=== PATIENT | female | born 1980 | race Caucasian/White ===

== ENCOUNTER → 2016-05-29 | Outpatient (CLI) | payer MEDICAID ==
[2016-05-29 10:19] LABS: HEMATOCRIT 43.1 % (36.0-47.0); HEMOGLOBIN 14.1 g/dL (12.0-15.5); HGB HCT DIFFERENCE -0.8; MEAN CORPUSCULAR HGB CONC 32.6 g/dL (32.0-36.0); MEAN CORPUSCULAR VOLUME 83 fl (80-97); RED BLOOD COUNT 5.22 10^6/uL (3.72-5.28); WHITE BLOOD COUNT 10.3 10^3/uL (4.0-10.5)
[2016-05-29 10:41] LABS: ALBUMIN 3.9 g/dL (3.5-5.0); BILIRUBIN,TOTAL 0.3 mg/dL (0.2-1.3); CHOLESTEROL 179.68 mg/dL (0-200)
== END ==
LOC: OD 08:53
PROVIDERS: ATTEND Psychiatry & Neurology Psychiatry
DX: F31.32 Bipolar disorder, current episode depressed, moderate (principal)
CPT/HCPCS: 36415; 80076; 82465; 83036; 83721; 84478; 85027

== ENCOUNTER 2016-06-16 05:10 | Day surgery (SDC) | payer MEDICAID ==
[2016-06-14 11:39] LABS: HEMATOCRIT 40.6 % (36.0-47.0); HEMOGLOBIN 13.2 g/dL (12.0-15.5); MEAN CORPUSCULAR HEMOGLOBIN 26.9 pg (27.0-33.4); MEAN CORPUSCULAR HGB CONC 32.4 g/dL (32.0-36.0); MEAN CORPUSCULAR VOLUME 83 fl (80-97); RED CELL DISTRIBUTION WIDTH 14.4 % (11.5-14.0); WHITE BLOOD COUNT 11.4 10^3/uL (4.0-10.5)
[2016-06-14 11:43] LABS: APPEARANCE,URINE SLIGHTLY-CLOUDY; BILIRUBIN,URINE NEGATIVE (NEGATIVE); GLUCOSE, URINE NEGATIVE (NEGATIVE); KETONES,URINE NEGATIVE (NEGATIVE); LEUKOCYTE ESTERASE,URINE TRACE (NEGATIVE); NITRITE,URINE NEGATIVE (NEGATIVE); PROTEIN,URINE 30 mg/dL (NEGATIVE); URINE SPECIFIC GRAVITY 1.029; UROBILINOGEN,URINE NEGATIVE mg/dL (<2.0)
[2016-06-14 12:05] LABS: ANION GAP 12 (5-19); BLOOD UREA NITROGEN 12 mg/dL (7-20); CALCIUM 9.4 mg/dL (8.4-10.2); CARBON DIOXIDE 24 mmol/L (22-30); CHLORIDE 107 mmol/L (98-107); CREATININE RESULT 0.74 mg/dL (0.52-1.25); GLUCOSE 93 mg/dL (75-110); POTASSIUM 3.8 mmol/L (3.6-5.0); SODIUM 142.8 mmol/L (137-145)
--- NOTE | 2016-06-14 13:41 | EKG REPORT ---
SEVERITY:- ABNORMAL ECG - SINUS RHYTHM NONSPECIFIC ST-T CHANGES- INFERIOR LEADS : Confirmed by: Tutu Grant MD 14-Jun-2016 13:41:24
[~2016-06-16 05:10] MED LIST: CEFAZOLIN 1 GM/D5W RTU 1 GM/50 ML RTUPB IV PRN; LIDOCAINE 0.5% INJ-PF (5 MG/ML) 50 ML SDV SUBCUT PRN; RINGERS SOLUTION,LACTATED 1,000 ML IV PRN
[2016-06-16] MEDS ORDERED: LIDOCAINE 1% INJ-PF (10 MG/ML) 30 ML SDV ONE (06:22)
[2016-06-16] MEDS ORDERED: FENTANYL CITRATE INJ/PF 100 MCG/2 ML AMPUL ONE (07:09)
[2016-06-16] MEDS ORDERED: MIDAZOLAM 2 MG/2 ML INJ ONE (07:09)
[2016-06-16] MEDS ORDERED: EPHEDRINE SULFATE INJ 50 MG/1 ML AMPULE ONE (07:10)
[2016-06-16] MEDS ORDERED: PROPOFOL INJ 200 MG/20 ML VIAL IV ONE (07:10)
[2016-06-16] MEDS ORDERED: MEPERIDINE HCL/PF INJ 25 MG/1 ML DISP.SYRIN IV PRN (07:56)
[2016-06-16] MEDS ORDERED: OXYCODONE-ACETAMINOPHEN 5-325 MG TABLET PO PRN ×3 (07:56→09:05)
[2016-06-16] MEDS ORDERED: MORPHINE SULFATE 10 MG/ML INJ IV PRN (07:56)
[2016-06-16] MEDS ORDERED: FENTANYL CITRATE INJ/PF 100 MCG/2 ML AMPUL IV PRN ×3 (07:56)
[2016-06-16] MEDS ORDERED: DIPHENHYDRAMINE HCL 50 MG/ML VIAL IV PRN (07:56)
[2016-06-16] MEDS ORDERED: PROMETHAZINE HCL INJ 25 MG/1 ML VIAL IV PRN ×2 (07:56)
[2016-06-16] MEDS: FENTANYL CITRATE INJ/PF 100 MCG/2 ML AMPUL ONE ×2 (08:35→08:40)
[2016-06-16] MEDS ORDERED: KETOROLAC TROMETHAMINE INJ/PF 30 MG/1 ML SDV ONE (08:44)
--- NOTE | 2016-06-16 08:53 | OPERATIVE REPORT E ---
Operative Report NAME: JANETH JOHNSON : 1980 AGE: 35Y DATE OF SURGERY: 06/16/2016 ROOM: PREOPERATIVE DIAGNOSES: 1. Anovulatory bleeding. 2. Menorrhagia. 3. Obesity. POSTOPERATIVE DIAGNOSES: 1. Anovulatory bleeding. 2. Menorrhagia. 3. Obesity. PROCEDURES: 1. Hysteroscopy. 2. Curettage. 3. Mirena IUD placement. SURGEON: GWENDOLYN RUIZ M.D. COMPLICATIONS: None. ANESTHESIA: General endotracheal. FINDINGS: That of a difficult to locate cervix. Uterus was incompletely evaluated due to limitations of equipment. IUD placed in situ. Uterus sounded to approximately 7 cm. INDICATIONS FOR PROCEDURE: The patient had abnormal uterine bleeding, failed outpatient localization of her cervix, and elected to proceed to an IUD placement and curettage for further assessment. The usual risks of bleeding, infection, anesthesia, damage to organs and tissues were discussed and the patient understood. DESCRIPTION OF PROCEDURE: The patient was taken to the operating room and placed in the lithotomy position and adequate anesthesia ascertained, prepped and draped for a hysteroscopy, curettage, IUD placement. Uneventful anesthesia induction was performed after surgical timeout performed, EUA performed, and antibiotics were given. Cervix was localized with a quadrant speculum, *------* vaginal length, and tenaculum was placed on the anterior lip of the cervix. The cervix was dilated uneventfully to admit an operative hysteroscope and limitations of the scope included adequate visualization of the uterine cavity. Uterine measurements were taken. The IUD was inserted, string was cut long, and bleeding was nil at the completion of procedure. Curettage followed the dilation productive of a small amount of tissue. At the completion of procedure, all sponge and needle counts were correct. The patient was taken to the recovery room in stable condition. DICTATING PHYSICIAN: GWENDOLYN RUIZ M.D. [id number] PHY#: [id number] ID: [id number] JOB#: [id number] ACCT: [id number] cc:GWENDOLYN RUIZ M.D. >
[2016-06-16] MEDS ORDERED: IBUPROFEN 800 MG TABLET PO PRN (09:04)
[2016-06-16] MEDS ORDERED: ONDANSETRON HCL INJ/PF 4 MG/2 ML SDV ONE (09:13)
[2016-06-16] MEDS ORDERED: DEXAMETHASONE SOD PHOSPHATE INJ 4 MG/1 ML VIAL ONE (09:13)
[2016-06-16] MEDS ORDERED: NEOSTIGMINE METHYLSULFATE 10 MG/10 ML VIAL ONE (09:13)
[2016-06-16] MEDS ORDERED: LIDOCAINE 2% INJ-PF (20 MG/ML) 10 ML AMPUL ONE (09:13)
[2016-06-16] MEDS ORDERED: ROCURONIUM BROMIDE INJ 50 MG/5 ML VIAL IV ONE (09:13)
[2016-06-16] MEDS ORDERED: GLYCOPYRROLATE INJ 0.4 MG/2 ML VIAL ONE (09:13)
[2016-06-16] MEDS ORDERED: SUCCINYLCHOLINE CHLORIDE INJ 200 MG/10 ML VIAL ONE (09:13)
[2016-06-16 11:18] VITALS: BP 122/77
== END 2016-06-16 10:20 | disposition home or self-care (01) ==
LOC: OROUT 05:10
PROVIDERS: ATTEND Specialist
PROC: 0UDB8ZX Extraction of Endometrium, Via Natural or Artificial Opening Endoscopic, Diagnostic (ICD-10-PCS; 2016-06-16)
PROC: 0UH Female Reproductive System, Insertion (ICD-10-PCS; principal; 2016-06-16 07:15)
DX: N94.4 Primary dysmenorrhea (principal); N92.0 Excessive and frequent menstruation with regular cycle; E66.9 Obesity, unspecified; K21.9 Gastro-esophageal reflux disease without esophagitis; Z68.45 Body mass index [BMI] 70 or greater, adult; Z88.2 Allergy status to sulfonamides; Z79.899 Other long term (current) drug therapy; Z88.8 Allergy status to other drugs, medicaments and biological substances
CPT/HCPCS: 93005; 86900; 86901; 36415; 86850; 85027; 81025; 80048; 81001; 88305 ×2; 71020; 93010; 58300; 58558; J2250; J0690; J3490 ×4; J1100; J3010; J1885; J0330; J2405; J2704; 952

== ENCOUNTER 2016-08-25 03:20 | Emergency (ER) | payer MEDICAID ==
[2016-08-25] MEDS ORDERED: ASPIRIN 81 MG TABLET, CHEWABLE PO ONE (04:33)
[2016-08-25 04:42] LABS: ABSOLUTE EOSINOPHILS # (AUTO) 0.7 10^3/uL (0.0-0.6); ABSOLUTE LYMPHOCYTES (AUTO) 3.1 10^3/uL (0.5-4.7); ABSOLUTE MONOCYTES (AUTO) 0.8 10^3/uL (0.1-1.4); ABSOLUTE NEUT (AUTO) 7.8 10^3/uL (1.7-8.2); BASOPHILS % (AUTO) 0.3 % (0-2); EOSINOPHILS % (AUTO) 5.5 % (0-6); HEMATOCRIT 40.2 % (36.0-47.0); HEMOGLOBIN 13.1 g/dL (12.0-15.5); HGB HCT DIFFERENCE -0.9; MEAN CORPUSCULAR HEMOGLOBIN 27.1 pg (27.0-33.4); MEAN CORPUSCULAR HGB CONC 32.6 g/dL (32.0-36.0); MEAN CORPUSCULAR VOLUME 83 fl (80-97); MONOCYTES % (AUTO) 6.3 % (3-13); RED BLOOD COUNT 4.83 10^6/uL (3.72-5.28); RED CELL DISTRIBUTION WIDTH 13.7 % (11.5-14.0); SEGMENTED NEUTROPHILS % (AUTO) 62.9 % (42-78); WHITE BLOOD COUNT 12.5 10^3/uL (4.0-10.5)
[2016-08-25 04:52] LABS: ALANINE AMINOTRANSFERASE 35 U/L (9-52); ALBUMIN 3.3 g/dL (3.5-5.0); ALKALINE PHOSPHATASE 61 U/L (38-126); ANION GAP 11 (5-19); ASPARTATE AMINO TRANSFERASE 26 U/L (14-36); BILIRUBIN,DIRECT 0.3 mg/dL (0.0-0.4); BILIRUBIN,TOTAL 0.4 mg/dL (0.2-1.3); BLOOD UREA NITROGEN 9 mg/dL (7-20); CALCIUM 9.2 mg/dL (8.4-10.2); CARBON DIOXIDE 20 mmol/L (22-30); CHLORIDE 110 mmol/L (98-107); CREATINE KINASE 60 U/L (30-135); CREATININE RESULT 0.75 mg/dL (0.52-1.25); GLUCOSE 144 mg/dL (75-110); POTASSIUM 3.8 mmol/L (3.6-5.0); SODIUM 141.3 mmol/L (137-145); TOTAL PROTEIN 6.1 g/dL (6.3-8.2)
[2016-08-25] MEDS ORDERED: LORAZEPAM INJ 2 MG/1 ML VIAL IV ONE (05:03)
[2016-08-25] MEDS ORDERED: MORPHINE SULFATE 10 MG/ML INJ IV ONE (05:03)
[2016-08-25 05:04] LABS: CREATINE KINASE MB 0.39 ng/mL (<4.55)
[2016-08-25 05:05] LABS: TROPONIN I < 0.012 ng/mL
--- NOTE | 2016-08-25 05:06 | RADIOLOGY REPORT (SQ) ---
EXAM DESCRIPTION: CHEST SINGLE VIEW COMPLETED DATE/TIME: 08/25/2016 4:54 am REASON FOR STUDY: chest pain COMPARISON: Chest x-ray 06/14/2016 EXAM PARAMETERS: NUMBER OF VIEWS: One view. TECHNIQUE: Single frontal radiographic view of the chest acquired. RADIATION DOSE: NA LIMITATIONS: None. FINDINGS: LUNGS AND PLEURA: No consolidation, pleural effusion or pneumothorax. MEDIASTINUM AND HILAR STRUCTURES: No masses. Contour normal. HEART AND VASCULAR STRUCTURES: Heart is upper normal limit in size. No overt vascular congestion. BONES: No acute findings. HARDWARE: None in the chest. IMPRESSION: NO ACUTE RADIOGRAPHIC FINDING IN THE CHEST. TECHNICAL DOCUMENTATION: JOB ID: [id number]
[2016-08-25 06:07] VITALS: BP 113/79
--- NOTE | 2016-08-25 06:07 | ER Document Report ---
ED General - General Chief Complaint: Chest Pain Stated Complaint: CHEST PAIN Time Seen by Provider: 08/25/16 04:33 Notes: Patient is a 35-year-old female presents emergency department complaining of chest pain with sudden onset about 230 this morning. Patient states it is a sharp stabbing pain with pressure in the left part of her chest that did not relieve with nitroglycerin or aspirin. She admits to associated nausea and vomiting which she states is common anytime she has any severe pain. Denies that it is worse with movement. At its worst when palpated. Patient states she does have a history of chest pain but nothing severe or lasting this long. She does have a history of bipolar, anxiety and has been having a lot more stress at home with 2 special needs children. TRAVEL OUTSIDE OF THE [place] IN LAST 30 DAYS: No - Related Data Allergies/Adverse Reactions: Sulfa (Sulfonamide Antibiotics) Allergy (Severe, Verified 06/15/16 10:30) ? sumatriptan [From Imitrex] Allergy (Intermediate, Verified 06/14/16 11:37) Hives citalopram hydrobromide [From Celexa] Allergy (Unknown, Verified 06/14/16 11:37) Hives pseudoephedrine HCl [From Sudafed] Allergy (Unknown, Verified 06/14/16 11:37) Hives adhesive tape Adverse Reaction (Unknown, Verified 06/14/16 11:37) Pruritis Past Medical History - Social History Smoking Status: Never Smoker Family History: Arthritis, DM, Hypertension, Malignancy, Other - asthma Patient has suicidal ideation: No - Past Medical History Cardiac Medical History: Denies: Hx Coronary Artery Disease, Hx Heart Attack, Hx Hypertension Pulmonary Medical History: Reports: Hx Bronchitis - A CHILD, Hx Pneumonia - FEB 2016 Denies: Hx Asthma, Hx COPD Neurological Medical History: Reports: Hx Migraine. Denies: Hx Cerebrovascular Accident, Hx Seizures Endocrine Medical History: Denies: Hx Diabetes Mellitus Type 2 Renal/ Medical History: Reports: Hx Kidney Stones, Hx Ovarian Cysts - pcos. Denies: Hx Peritoneal Dialysis GI Medical History: Reports: Hx Gastroesophageal Reflux Disease Musculoskeltal Medical History: Denies Hx Arthritis Skin Medical History: Reports Hx Eczema Psychiatric Medical History: Reports: Hx Anxiety, Hx Bipolar Disorder, Hx Depression Traumatic Medical History: Reports: Hx Fractures - hand Past Surgical History: Reports: Hx Adenoidectomy, Hx Section, Hx Cholecystectomy, Hx Kidney (Renal Surgery), Hx Tonsillectomy. Denies: Hx Hysterectomy, Hx Pacemaker - Immunizations Immunizations up to date: Yes Hx Diphtheria, Pertussis, Tetanus Vaccination: Yes Hx Pneumococcal Vaccination: 03/26/00 Review of Systems - Review of Systems Constitutional: No symptoms reported Cardiovascular: See HPI Respiratory: No symptoms reported Gastrointestinal: No symptoms reported -: Yes All other systems reviewed and negative Physical Exam - Vital signs Vitals: Temp Resp BP Pulse Ox 98.9 F 30 H 137/86 H 94 08/25/16 03:43 08/25/16 03:43 08/25/16 03:43 08/25/16 03:43 - Notes Notes: PHYSICAL EXAM GENERAL: Alert, interacts well. NECK: Full range of motion. Supple. Trachea midline. LUNGS: Clear to auscultation bilaterally, no wheezes, rales, or rhonchi. No respiratory distress. HEART: Regular rate and rhythm. No murmurs, gallops, or rubs. Tender over the pectoralis major distribution on the left part of the chest. ABDOMEN: Soft, nondistended, nontender. No guarding, rebound, or rigidity.. Bowel sounds present in all 4 quadrants. EXTREMITIES: Moves all 4 extremities spontaneously. No edema, radial and dorsalis pedis pulses 2/4 bilaterally. No cyanosis. NEUROLOGICAL: Alert and oriented x4. Normal speech. PSYCH: Normal affect, normal mood. SKIN: Warm, dry, normal turgor. No rashes or lesions noted. Course - Re-evaluation Re-evalutation: 08/25/16 06:03 Patient is very well in appearance, vitals within normal limits. Low clinical suspicion for ACS given clinical history, exam, EKG without ST elevations or depressions, and negative initial troponin. Patient declined repeat troponin. HEART score less than or equal to 3. PE also seems unlikely given clinical history, absence of tachycardia or dyspnea. Well's score of 0. CXR without evidence of pneumothorax or pneumonia. No widened mediastinum. Aortic dissection also seems unlikely given history, symmetric pulses, CXR, and vitals. At this time will discharge with return precautions and follow-up recommendations. Verbal discharge instructions given a the bedside and opportunity for questions given. Medication warnings reviewed. Patient is in agreement with this plan and has verbalized understanding of return precautions and the need for primary care follow-up in the next 24-72 hours. Per [facility] protocol and guidelines, this case was discussed with supervising physician Dr. Sarah Boyce prior to discharge - Vital Signs Vital signs: Temp Pulse Resp BP Pulse Ox 98.9 F 25 H 113/79 93 08/25/16 03:43 08/25/16 05:31 08/25/16 05:31 08/25/16 05:31 - Laboratory Result Diagrams: 08/25/16 03:50 08/25/16 03:50 Laboratory results interpreted by me: 08/25/16 08/25/16 03:50 03:50 WBC 12.5 H Absolute Eosinophils 0.7 H Chloride 110 H Carbon Dioxide 20 L Glucose 144 H Total Protein 6.1 L Albumin 3.3 L - Diagnostic Test Radiology reviewed: Image reviewed, Reports reviewed - EKG Interpretation by Me EKG shows normal: Sinus rhythm Rate: Normal Rhythm: NSR Discharge - Discharge Clinical Impression: Chest pain, unspecified, Anxiety Condition: Good Disposition: HOME, SELF-CARE Instructions: Chest Pain of Unclear Cause ([facility]), Anxiety ([facility]) Referrals: JUAN FRANCISCO WHITEHEAD MD [NO LOCAL MD] - 08/25/16
--- NOTE | 2016-08-25 08:51 | EKG REPORT ---
SEVERITY:- BORDERLINE ECG - SINUS RHYTHM BORDERLINE T ABNORMALITIES, INFERIOR LEADS : Confirmed by: Katy Jim 25-Aug-2016 08:50:16
== END 2016-08-25 06:12 | disposition home or self-care (01) ==
LOC: ER 03:20
DX: R07.9 Chest pain, unspecified (principal); F41.9 Anxiety disorder, unspecified; R11.2 Nausea with vomiting, unspecified; F31.9 Bipolar disorder, unspecified
CPT/HCPCS: 36415; 71010; 80053; 82550; 82553; 84484; 85025; 85379; 93005; 93010; 99285

== ENCOUNTER 2016-09-22 22:08 | Emergency (ER) | payer SELFPAY ==
[2016-09-22 22:47] VITALS: BP 142/102
--- NOTE | 2016-09-23 01:41 | ER Document Report ---
ED General - General Chief Complaint: Ear Pain Stated Complaint: EAR PAIN Time Seen by Provider: 09/23/16 00:51 Notes: Patient is a 35-year-old female who presents with 3 days of right ear pain. Does describe as a severe, constant, throbbing pain. She has tried ibuprofen without improvement of the pain. Nothing worsens the pain. States this feels similar to when she has had otitis media in the past. She has not seen a primary care doctor regarding today's concerns. She denies any loss of hearing. She has not had a fever or constitutional symptoms. TRAVEL OUTSIDE OF THE [place] IN LAST 30 DAYS: No - Related Data Allergies/Adverse Reactions: Sulfa (Sulfonamide Antibiotics) Allergy (Severe, Verified 06/15/16 10:30) ? sumatriptan [From Imitrex] Allergy (Intermediate, Verified 06/14/16 11:37) Hives citalopram hydrobromide [From Celexa] Allergy (Unknown, Verified 06/14/16 11:37) Hives pseudoephedrine HCl [From Sudafed] Allergy (Unknown, Verified 06/14/16 11:37) Hives adhesive tape Adverse Reaction (Unknown, Verified 06/14/16 11:37) Pruritis Past Medical History - General Information source: Patient - Social History Smoking Status: Never Smoker Frequency of alcohol use: None Drug Abuse: None Lives with: Family Family History: Arthritis, DM, Hypertension, Malignancy, Other - asthma Patient has suicidal ideation: No Patient has homicidal ideation: No - Past Medical History Cardiac Medical History: Denies: Hx Coronary Artery Disease, Hx Heart Attack, Hx Hypertension Pulmonary Medical History: Reports: Hx Bronchitis - A CHILD, Hx Pneumonia - FEB 2016 Denies: Hx Asthma, Hx COPD Neurological Medical History: Reports: Hx Migraine. Denies: Hx Cerebrovascular Accident, Hx Seizures Endocrine Medical History: Denies: Hx Diabetes Mellitus Type 2 Renal/ Medical History: Reports: Hx Kidney Stones, Hx Ovarian Cysts - pcos. Denies: Hx Peritoneal Dialysis GI Medical History: Reports: Hx Gastroesophageal Reflux Disease Musculoskeltal Medical History: Denies Hx Arthritis Skin Medical History: Reports Hx Eczema Psychiatric Medical History: Reports: Hx Anxiety, Hx Bipolar Disorder, Hx Depression Traumatic Medical History: Reports: Hx Fractures - hand Past Surgical History: Reports: Hx Adenoidectomy, Hx Section, Hx Cholecystectomy, Hx Kidney (Renal Surgery), Hx Tonsillectomy. Denies: Hx Hysterectomy, Hx Pacemaker - Immunizations Immunizations up to date: Yes Hx Diphtheria, Pertussis, Tetanus Vaccination: Yes Hx Pneumococcal Vaccination: 03/26/00 Review of Systems - Review of Systems Notes: Constitutional: Negative for fever. HENT: Positive for right ear pain Eyes: Negative for visual changes. Cardiovascular: Negative for chest pain. Respiratory: Negative for shortness of breath. Gastrointestinal: Negative for abdominal pain, vomiting or diarrhea. Genitourinary: Negative for dysuria. Musculoskeletal: Negative for back pain. Skin: Negative for rash. Neurological: Negative for headaches, weakness or numbness. 10 point ROS negative except as marked above and in HPI. Physical Exam - Vital signs Vitals: Temp Pulse Resp BP Pulse Ox 98.3 F 97 22 H 142/102 H 95 09/22/16 22:46 09/22/16 22:46 09/22/16 22:46 09/22/16 22:46 09/22/16 22:46 Interpretation: Hypertensive Notes: PHYSICAL EXAMINATION: GENERAL: Well-appearing, well-nourished and in no acute distress. HEAD: Atraumatic, normocephalic. EYES: sclera anicteric, conjunctiva are normal. ENT: There is bulging of the right tympanic membrane with associated erythema without a purulent effusion. Left TM is clear. NECK: Normal range of motion LUNGS: Normal work of breathing HEART: 2+ radial pulses bilaterally EXTREMITIES: no pitting or edema. No cyanosis. NEUROLOGICAL: No focal neurological deficits. Moves all extremities spontaneously and on command. PSYCH: Normal mood, normal affect. SKIN: Warm, Dry, normal turgor, no rashes or lesions noted. Course - Re-evaluation Re-evalutation: 09/23/16 01:38 Patient presents with right ear pain and has findings on exam of a bulging right tympanic membrane with mild erythema without purulent expression. Suspect likely viral versus allergic etiology. I have encouraged the patient begin cetirizine 10 mg daily. I have also prescribed a [id number] prescription of amoxicillin should her symptoms not resolve within the next several days using conservative management as there are not specific findings for an otitis media that is bacterial in origin at this time. At this time will discharge with return precautions and follow-up recommendations. Verbal discharge instructions given a the bedside and opportunity for questions given. Medication warnings reviewed. Patient is in agreement with this plan and has verbalized understanding of return precautions and the need for primary care follow-up in the next 24-72 hours. - Vital Signs Vital signs: Temp Pulse Resp BP Pulse Ox 98.3 F 97 22 H 142/102 H 95 09/22/16 22:46 09/22/16 22:46 09/22/16 22:46 09/22/16 22:46 09/22/16 22:46 Discharge - Discharge Clinical Impression: Right otitis media Qualifiers: Otitis media type: serous Chronicity: acute Recurrence: not specified as recurrent Qualified Code(s): H65.01 - Acute serous otitis media, right ear Condition: Good Disposition: HOME, SELF-CARE Additional Instructions: Take cetirizine 10 mg daily for the next several days and see if this resolves your ear ache. You can also take ibuprofen 600 mg every 6 hours. If within the next 48-72 hours you do not have resolution of your pain begin taking the amoxicillin that was prescribed. Return if you develop fever greater than 100.4 F, have persistent vomiting, pass out, or have any other symptoms that are worrisome to you. Prescriptions: Amoxicillin 1 tab PO TID #30 tab
== END 2016-09-23 01:50 | disposition home or self-care (01) ==
LOC: ER 22:08
DX: H65.01 Acute serous otitis media, right ear (principal); H92.01 Otalgia, right ear; Z88.2 Allergy status to sulfonamides; Z88.8 Allergy status to other drugs, medicaments and biological substances; Z88.6 Allergy status to analgesic agent
CPT/HCPCS: 99282

== ENCOUNTER 2016-10-15 22:37 | Emergency (ER) | payer SELFPAY ==
[2016-10-15] MEDS ORDERED: NORMAL SALINE 1000 ML 1,000 ML IV ONE (23:36)
[2016-10-15] MEDS ORDERED: DIAZEPAM INJ 10 MG/2 ML DISP.SYRIN IV ONE (23:36)
[2016-10-16 00:37] LABS: ABSOLUTE BASOPHILS # (AUTO) 0.1 10^3/uL (0.0-0.2); ABSOLUTE EOSINOPHILS # (AUTO) 0.5 10^3/uL (0.0-0.6); ABSOLUTE LYMPHOCYTES (AUTO) 3.1 10^3/uL (0.5-4.7); ABSOLUTE MONOCYTES (AUTO) 0.9 10^3/uL (0.1-1.4); ABSOLUTE NEUT (AUTO) 7.6 10^3/uL (1.7-8.2); EOSINOPHILS % (AUTO) 4.5 % (0-6); HEMATOCRIT 42.2 % (36.0-47.0); HEMOGLOBIN 14.2 g/dL (12.0-15.5); HGB HCT DIFFERENCE 0.4; LYMPHOCYTES % (AUTO) 25.3 % (13-45); MEAN CORPUSCULAR HEMOGLOBIN 27.2 pg (27.0-33.4); MEAN CORPUSCULAR HGB CONC 33.6 g/dL (32.0-36.0); MEAN CORPUSCULAR VOLUME 81 fl (80-97); MONOCYTES % (AUTO) 7.3 % (3-13); RED BLOOD COUNT 5.21 10^6/uL (3.72-5.28); RED CELL DISTRIBUTION WIDTH 14.3 % (11.5-14.0); SEGMENTED NEUTROPHILS % (AUTO) 61.9 % (42-78); WHITE BLOOD COUNT 12.2 10^3/uL (4.0-10.5)
[2016-10-16 00:47] LABS: ANION GAP 7 (5-19); BLOOD UREA NITROGEN 9 mg/dL (7-20); CALCIUM 9.1 mg/dL (8.4-10.2); CARBON DIOXIDE 29 mmol/L (22-30); CHLORIDE 104 mmol/L (98-107); CREATININE RESULT 0.76 mg/dL (0.52-1.25); GLUCOSE 92 mg/dL (75-110); POTASSIUM 4.5 mmol/L (3.6-5.0); SODIUM 140.4 mmol/L (137-145)
[2016-10-16] MEDS ORDERED: PROCHLORPERAZINE EDISYLATE INJ 10 MG/2 ML VIAL IV ONE (00:59)
[2016-10-16] MEDS ORDERED: KETOROLAC TROMETHAMINE INJ/PF 30 MG/1 ML SDV IV ONE (00:59)
[2016-10-16] MEDS ORDERED: DIPHENHYDRAMINE HCL 50 MG/ML VIAL IV ONE (00:59)
--- NOTE | 2016-10-16 01:00 | ER Document Report ---
ED General - General Chief Complaint: Dizziness Stated Complaint: DIZZY AND VOMITING Time Seen by Provider: 10/15/16 23:35 Notes: Patient is a 35-year-old female with past medical history of morbid obesity, history of idiopathic intracranial hypertension, who presents with 3 days of vertigo. Describes it as a sensation of room spinning. Nothing improves or worsens her symptoms. She has tried meclizine without improvement which she states does normally improve her vertigo. Also notes a dull, constant, throbbing headache in the bitemporal region that was gradual in onset and has been unchanged over the past 3-4 hours. Does admit that she is no longer taking her Diamox for her idiopathic intracranial hypertension due to side effects and thinks that this may be a cause of her episode today. She has not seen a primary care doctor regarding today's concerns. She denies any focal weakness, numbness, or altered mental status. Denies any difficulty with ambulation. TRAVEL OUTSIDE OF THE [place] IN LAST 30 DAYS: No - Related Data Allergies/Adverse Reactions: Sulfa (Sulfonamide Antibiotics) Allergy (Severe, Verified 10/15/16 22:44) ? sumatriptan [From Imitrex] Allergy (Intermediate, Verified 10/15/16 22:44) Hives citalopram hydrobromide [From Celexa] Allergy (Unknown, Verified 10/15/16 22:44) Hives pseudoephedrine HCl [From Sudafed] Allergy (Unknown, Verified 10/15/16 22:44) Hives adhesive tape Adverse Reaction (Unknown, Verified 10/15/16 22:44) Pruritis Past Medical History - General Information source: Patient - Social History Smoking Status: Never Smoker Frequency of alcohol use: None Drug Abuse: None Lives with: Family Family History: Arthritis, DM, Hypertension, Malignancy, Other - asthma - Past Medical History Cardiac Medical History: Denies: Hx Coronary Artery Disease, Hx Heart Attack, Hx Hypertension Pulmonary Medical History: Reports: Hx Bronchitis - A CHILD, Hx Pneumonia - FEB 2016 Denies: Hx Asthma, Hx COPD Neurological Medical History: Reports: Hx Migraine. Denies: Hx Cerebrovascular Accident, Hx Seizures Endocrine Medical History: Denies: Hx Diabetes Mellitus Type 2 Renal/ Medical History: Reports: Hx Kidney Stones, Hx Ovarian Cysts - pcos. Denies: Hx Peritoneal Dialysis GI Medical History: Reports: Hx Gastroesophageal Reflux Disease Musculoskeltal Medical History: Denies Hx Arthritis Skin Medical History: Reports Hx Eczema Psychiatric Medical History: Reports: Hx Anxiety, Hx Bipolar Disorder, Hx Depression Traumatic Medical History: Reports: Hx Fractures - hand Past Surgical History: Reports: Hx Adenoidectomy, Hx Section, Hx Cholecystectomy, Hx Kidney (Renal Surgery), Hx Tonsillectomy. Denies: Hx Hysterectomy, Hx Pacemaker - Immunizations Immunizations up to date: Yes Hx Diphtheria, Pertussis, Tetanus Vaccination: Yes Hx Pneumococcal Vaccination: 03/26/00 Review of Systems - Review of Systems Notes: Constitutional: Negative for fever. HENT: Negative for sore throat. Eyes: Negative for visual changes. Cardiovascular: Negative for chest pain. Respiratory: Negative for shortness of breath. Gastrointestinal: Negative for abdominal pain, vomiting or diarrhea. Genitourinary: Negative for dysuria. Musculoskeletal: Negative for back pain. Skin: Negative for rash. Neurological: Positive for headaches, negative for weakness or numbness. Positive for vertigo 10 point ROS negative except as marked above and in HPI. Physical Exam - Vital signs Vitals: Temp Pulse Resp BP Pulse Ox 98.1 F 112 H 22 H 129/108 H 94 10/15/16 22:44 10/15/16 22:44 10/15/16 22:44 10/15/16 22:44 10/15/16 22:44 Interpretation: Tachycardic, Tachypneic Notes: PHYSICAL EXAMINATION: GENERAL: Well-appearing, well-nourished and in no acute distress. HEAD: Atraumatic, normocephalic. EYES: Pupils equal round and reactive to light, extraocular movements intact, sclera anicteric, conjunctiva are normal. ENT: nares patent, oropharynx clear without exudates. Moist mucous membranes. NECK: Normal range of motion, supple without lymphadenopathy LUNGS: Breath sounds clear to auscultation bilaterally and equal. No wheezes rales or rhonchi. HEART: Regular rate and rhythm without murmurs ABDOMEN: Soft, nontender, normoactive bowel sounds. No guarding, no rebound. No masses appreciated. EXTREMITIES: Normal range of motion, no pitting or edema. No cyanosis. NEUROLOGICAL: Face symmetric. Tongue protrudes midline. Extraocular motions intact. Pupils are 2 mm and equally reactive. Normal speech, normal gait. 5 out of 5 strength in both the distal and proximal upper and lower extremities bilaterally. Sensation is grossly intact throughout. Finger to nose testing normal. Pronator drift normal. PSYCH: Normal mood, normal affect. SKIN: Warm, Dry, normal turgor, no rashes or lesions noted. Course - Re-evaluation Re-evalutation: 10/16/16 01:00 Presentation of vertigo that appears most consistent with a benign peripheral vertigo. Patient has no abnormal findings on exam. Normal cerebellar testing, steady even gait. Able to walk on heels and toes. Normal proprioception. Patient is not an elevated risk for a cerebellar infarction given age, absence of significant risk factors. Patient did have improvement of symptoms here in the emergency department with valium and a migraine cocktail. Suspect likely acute vestibular neuritis vs migraine headache with associated vertigo. I do not believe neurologic imaging is indicated at this time based on physical examination and clinical history. At this time will discharge with return precautions and follow-up recommendations. Verbal discharge instructions given a the bedside and opportunity for questions given. Medication warnings reviewed. Patient is in agreement with this plan and has verbalized understanding of return precautions and the need for primary care follow-up in the next 24-72 hours. - Vital Signs Vital signs: Temp Pulse Resp BP Pulse Ox 98.1 F 112 H 17 108/94 H 98 10/15/16 22:44 10/15/16 22:44 10/16/16 01:01 10/16/16 01:01 10/16/16 01:01 - Laboratory Result Diagrams: 10/16/16 00:28 10/16/16 00:28 Laboratory results interpreted by me: 10/16/16 00:28 WBC 12.2 H RDW 14.3 H Discharge - Discharge Clinical Impression: Vertigo Condition: Good Disposition: HOME, SELF-CARE Additional Instructions: You were seen today for lightheadedness/dizziness. The exact cause of your symptoms is unclear but your workup here is reassuring without any concerning findings. Please follow closely with your primary care physician in the next 1- 3 days. Return if you pass out, have additional episodes of lightheadedness, develop weakness/numbness, have persistent vomiting, chest pain, shortness of breath or any other symptoms that are concerning to you
[2016-10-16 01:08] VITALS: BP 108/94
== END 2016-10-16 02:22 | disposition home or self-care (01) ==
LOC: ER 22:37
DX: R42 Dizziness and giddiness (principal); R51 Headache; I10 Essential (primary) hypertension; R11.10 Vomiting, unspecified
CPT/HCPCS: 99284; 96361; 96374; 96375; 36415; 84703; 85025; 80048; J3360; J1200; J1885; J0780; J7030

== ENCOUNTER 2016-11-07 16:30 | Emergency (ER) | payer SELFPAY ==
[2016-11-07] MEDS ORDERED: HYDROCODONE/ACETAMINOPHEN 5-325 MG TABLET PO ONE (17:17)
[2016-11-07] MEDS ORDERED: ONDANSETRON 4 MG TAB.RAPDIS PO ONE (17:17)
--- NOTE | 2016-11-07 17:20 | ER Document Report ---
ED General - General Chief Complaint: Flank Pain Stated Complaint: LOW BACK PAIN, NAUSEA Time Seen by Provider: 11/07/16 17:11 Mode of Arrival: Ambulatory Information source: Patient Notes: 35-year-old female presents with complaints of right flank pain. Patient notes this feels similar to previous kidney infections. Denies any fevers chills, admits to nausea vomiting TRAVEL OUTSIDE OF THE [place] IN LAST 30 DAYS: No - HPI Onset: Other - 2 days Onset/Duration: Sudden, Persistent Quality of pain: Achy Severity: Mild Pain Level: 1 Associated symptoms: Nausea, Vomiting Exacerbated by: Denies Relieved by: Denies Similar symptoms previously: Yes Recently seen / treated by doctor: Yes - Related Data Allergies/Adverse Reactions: Sulfa (Sulfonamide Antibiotics) Allergy (Severe, Verified 11/07/16 16:45) ? sumatriptan [From Imitrex] Allergy (Intermediate, Verified 11/07/16 16:45) Hives citalopram hydrobromide [From Celexa] Allergy (Unknown, Verified 11/07/16 16:45) Hives pseudoephedrine HCl [From Sudafed] Allergy (Unknown, Verified 11/07/16 16:45) Hives adhesive tape Adverse Reaction (Unknown, Verified 11/07/16 16:45) Pruritis Past Medical History - Social History Smoking Status: Never Smoker Cigarette use (# per day): No Chew tobacco use (# tins/day): No Smoking Education Provided: No Frequency of alcohol use: None Drug Abuse: None Family History: Arthritis, DM, Hypertension, Malignancy, Other - asthma Patient has suicidal ideation: No Patient has homicidal ideation: No - Past Medical History Cardiac Medical History: Denies: Hx Coronary Artery Disease, Hx Heart Attack, Hx Hypertension Pulmonary Medical History: Reports: Hx Bronchitis - A CHILD, Hx Pneumonia - FEB 2016 Denies: Hx Asthma, Hx COPD Neurological Medical History: Reports: Hx Migraine. Denies: Hx Cerebrovascular Accident, Hx Seizures Endocrine Medical History: Denies: Hx Diabetes Mellitus Type 2 Renal/ Medical History: Reports: Hx Kidney Stones, Hx Ovarian Cysts - pcos. Denies: Hx Peritoneal Dialysis GI Medical History: Reports: Hx Gastroesophageal Reflux Disease Musculoskeltal Medical History: Denies Hx Arthritis Skin Medical History: Reports Hx Eczema Psychiatric Medical History: Reports: Hx Anxiety, Hx Bipolar Disorder, Hx Depression Traumatic Medical History: Reports: Hx Fractures - hand Past Surgical History: Reports: Hx Adenoidectomy, Hx Section, Hx Cholecystectomy, Hx Kidney (Renal Surgery) - stone removal, Hx Tonsillectomy. Denies: Hx Hysterectomy, Hx Pacemaker - Immunizations Immunizations up to date: Yes Hx Diphtheria, Pertussis, Tetanus Vaccination: Yes Hx Pneumococcal Vaccination: 03/26/00 Review of Systems - Review of Systems Notes: REVIEW OF SYSTEMS: CONSTITUTIONAL : Denies fever, chills, or sweats. Denies recent illness. EENT: Denies eye, ear, throat, or mouth pain or symptoms. Denies nasal or sinus congestion or discharge. Denies throat, tongue, or mouth swelling or difficulty swallowing. CARDIOVASCULAR: Denies chest pain. Denies palpitations or racing or irregular heart beat. Denies ankle edema. RESPIRATORY: Denies cough, cold, or chest congestion. Denies shortness of breath, difficulty breathing, or wheezing. GASTROINTESTINAL: Admits to right flank pain nausea vomiting GENITOURINARY: Denies difficulty urinating, painful urination, burning, frequency, blood in urine, or discharge. FEMALE GENITOURINARY: Denies vaginal bleeding, heavy or abnormal periods, irregular periods. Denies vaginal discharge or odor. MUSCULOSKELETAL: Denies back or neck pain or stiffness. Denies joint pain or swelling. SKIN: Denies rash, lesions or sores. HEMATOLOGIC : Denies easy bruising or bleeding. LYMPHATIC: Denies swollen, enlarged glands. NEUROLOGICAL: Denies confusion or altered mental status. Denies passing out or loss of consciousness. Denies dizziness or lightheadedness. Denies headache. Denies weakness or paralysis or loss of use of either side. Denies problems with gait or speech. Denies sensory loss, numbness, or tingling. Denies seizures. PSYCHIATRIC: Denies anxiety or stress. Denies depression, suicidal ideation, or homicidal ideation. ALL OTHER SYSTEMS REVIEWED AND NEGATIVE. PHYSICAL EXAMINATION: GENERAL: Well-appearing, well-nourished and in no acute distress. HEAD: Atraumatic, normocephalic. EYES: Pupils equal round and reactive to light, extraocular movements intact, conjunctiva are normal. ENT: Nares patent, oropharynx clear without exudates. Moist mucous membranes. NECK: Normal range of motion, supple without lymphadenopathy LUNGS: Breath sounds clear to auscultation bilaterally and equal. No wheezes rales or rhonchi. HEART: Regular rate and rhythm without murmurs ABDOMEN: Soft mild tenderness of the right flank Female : deferred Musculoskeletal: Normal range of motion, no pitting or edema. No cyanosis. NEUROLOGICAL: Cranial nerves grossly intact. Normal speech, normal gait. Normal sensory, motor exams PSYCH: Normal mood, normal affect. SKIN: Warm, Dry, normal turgor, no rashes or lesions noted. Dictation was performed using [employer] voice recognition software Physical Exam - Vital signs Vitals: Temp Pulse Resp BP Pulse Ox 98.5 F 92 22 H 148/94 H 94 11/07/16 18:59 11/07/16 18:59 11/07/16 18:59 11/07/16 18:59 11/07/16 18:59 Course - Re-evaluation Re-evalutation: 11/07/16 17:20 Urinalysis hCG pending 11/07/16 19:02 Urinalysis noted mild infection, CT noted no acute abnormality. Patient will be given antibiotics and is stable for discharge After performing a Medical Screening Examination, I estimate there is LOW risk for ACUTE APPENDICITIS, BOWEL OBSTRUCTION, ACUTE CHOLECYSTITIS, PERFORATED DIVERTICULITIS, INCARCERATED HERNIA, PANCREATITIS, PELVIC INFLAMMATORY DISEASE, PERFORATED ULCER, ECTOPIC , or TUBO-OVARIAN ABSCESS, thus I consider the discharge disposition reasonable. Also, there is no evidence or peritonitis , sepsis, or toxicity. I have reevaluated this patient multiple times and no significant life threatening changes are noted. The patient and I have discussed the diagnosis and risks, and we agree with discharging home with close follow-up with the understanding that symptoms and presentations can change. We also discussed returning to the Emergency Department immediately if new or worsening symptoms occur. We have discussed the symptoms which are most concerning (e.g., bloody stool, fever, changing or worsening pain, vomiting) that necessitate immediate return. - Vital Signs Vital signs: Temp Pulse Resp BP Pulse Ox 98.5 F 92 22 H 148/94 H 94 11/07/16 18:59 11/07/16 18:59 11/07/16 18:59 11/07/16 18:59 11/07/16 18:59 - Laboratory Laboratory results interpreted by me: 11/07/16 17:25 Urine Protein 30 H Urine Urobilinogen 2.0 H Ur Leukocyte Esterase SMALL H - Diagnostic Test Radiology reviewed: Image reviewed, Reports reviewed Discharge - Discharge Clinical Impression: Flank pain UTI (urinary tract infection) Qualifiers: Urinary tract infection type: acute cystitis Hematuria presence: with hematuria Qualified Code(s): N30.01 - Acute cystitis with hematuria Condition: Stable Disposition: HOME, SELF-CARE Instructions: Urinary Tract Infection ([facility]) Additional Instructions: Follow up with your physician tomorrow for further care or return to the ED IMMEDIATELY if symptoms worsen or new concerns occur. If you cannot afford to follow up with your primary care physician a list of low cost clinics have been provided at the end of your discharge papers as well. Prescriptions: Ciprofloxacin HCl [Cipro 500 mg Tablet] 500 mg PO BID #10 tablet
[2016-11-07 17:36] LABS: APPEARANCE,URINE SLIGHTLY-CLOUDY; BILIRUBIN,URINE NEGATIVE (NEGATIVE); GLUCOSE, URINE NEGATIVE (NEGATIVE); KETONES,URINE NEGATIVE (NEGATIVE); LEUKOCYTE ESTERASE,URINE SMALL (NEGATIVE); NITRITE,URINE NEGATIVE (NEGATIVE); PROTEIN,URINE 30 mg/dL (NEGATIVE); URINE SPECIFIC GRAVITY 1.026
--- NOTE | 2016-11-07 18:41 | RADIOLOGY REPORT (SQ) ---
EXAM DESCRIPTION: CT LTD RENAL STONE PROTOCOL ON COMPLETED DATE/TIME: 11/07/2016 6:20 pm REASON FOR STUDY: right flank pain COMPARISON: 05/19/2015 TECHNIQUE: CT scan of the abdomen and pelvis performed without intravenous or oral contrast. Images reviewed with lung, soft tissue, and bone windows. Reconstructed coronal and sagittal MPR images revi ewed. All images stored on PACS. All CT scanners at this facility use dose modulation, iterative reconstruction, and/or weight based d osing when appropriate to reduce radiation dose to as low as reasonably achievable (ALARA). [facility]: Dose Right [facility]: CareDose [facility]: Dose Right [facility]: Teradose 4D [facility]: [employer] RADIATION DOSE: Up-to-date CT equipment and radiation dose reduction techniques were employed. CTDIv ol: 27.2 mGy. DLP: 1473 mGy-cm.mGy. LIMITATIONS: None. FINDINGS: LOWER CHEST: No significant findings. No nodules or infiltrates. NON-CONTRASTED LIVER, SPLEEN, ADRENALS: Evaluation limited by lack of IV contrast. No identified sign ificant masses. PANCREAS: No masses. No peripancreatic inflammatory changes. GALLBLADDER: No identified stones by CT criteria. No inflammatory changes to suggest cholecystitis. RIGHT KIDNEY AND URETER: No suspicious masses. Assessment limited by lack of IV contrast. No signif icant calcifications. No hydronephrosis or hydroureter. LEFT KIDNEY AND URETER: No suspicious masses. Assessment limited by lack of IV contrast. No signifi cant calcifications. No hydronephrosis or hydroureter. AORTA AND RETROPERITONEUM: No aneurysm. No retroperitoneal masses or adenopathy. BOWEL AND PERITONEAL CAVITY: No obvious masses or inflammatory changes. No free fluid. APPENDIX: Normal. PELVIS, BLADDER, AND ABDOMINAL WALL:No abnormal masses. No free fluid. Bladder normal. BONES: No significant findings. OTHER: No other significant finding. IMPRESSION: NO SIGNIFICANT OR ACUTE PROCESS IN THE ABDOMEN OR PELVIS. TECHNICAL DOCUMENTATION: JOB ID: [id number] Quality ID # [id number]: Final reports with documentation of one or more dose reduction techniques (e.g., Au tomated exposure control, adjustment of the mA and/or kV according to patient size, use of iterative reconstruction technique) 2010 [employer]- All Rights Reserved
[2016-11-07 18:59] VITALS: BP 148/94
== END 2016-11-07 19:05 | disposition home or self-care (01) ==
LOC: ER 16:30
DX: N30.01 Acute cystitis with hematuria (principal); M54.5 Low back pain; R11.2 Nausea with vomiting, unspecified; Z88.2 Allergy status to sulfonamides; Z87.442 Personal history of urinary calculi; Z90.49 Acquired absence of other specified parts of digestive tract
CPT/HCPCS: 99284; 81025; 81001; 76380; S0119

== ENCOUNTER 2016-11-14 20:05 | Emergency (ER) | payer SELFPAY ==
[2016-11-14] MEDS ORDERED: NORMAL SALINE 1000 ML 1,000 ML IV ONE (21:37)
[2016-11-14] MEDS ORDERED: PROMETHAZINE HCL 25 MG TABLET PO ONE (21:38)
[2016-11-14] MEDS ORDERED: IBUPROFEN 600 MG TABLET PO ONE (21:38)
[2016-11-14] MEDS ORDERED: KETOROLAC TROMETHAMINE 60 MG/2 ML SDV IM ONE (21:39)
--- NOTE | 2016-11-14 21:40 | ER Document Report ---
ED Medical Screen (RME) - General Chief Complaint: Lower Abdominal Pain Stated Complaint: ABDOMINAL PAIN,NAUSEA Time Seen by Provider: 11/14/16 21:36 Notes: Patient is a 35-year-old female who comes emergency department for chief complaint of bilateral lower abdominal pain that started earlier today, she reports some nausea but denies vomiting, she denies dysuria, vaginal bleeding, flank pain. She does report acute stone history but denies that this feels like one. She has an IUD in place. TRAVEL OUTSIDE OF THE [place] IN LAST 30 DAYS: No - Related Data Allergies/Adverse Reactions: Sulfa (Sulfonamide Antibiotics) Allergy (Severe, Verified 11/14/16 20:11) ? sumatriptan [From Imitrex] Allergy (Intermediate, Verified 11/14/16 20:11) Hives citalopram hydrobromide [From Celexa] Allergy (Unknown, Verified 11/14/16 20:11) Hives pseudoephedrine HCl [From Sudafed] Allergy (Unknown, Verified 11/14/16 20:11) Hives adhesive tape Adverse Reaction (Unknown, Verified 11/14/16 20:11) Pruritis Past Medical History - Past Medical History Cardiac Medical History: Denies: Hx Coronary Artery Disease, Hx Heart Attack, Hx Hypertension Pulmonary Medical History: Reports: Hx Bronchitis - A CHILD, Hx Pneumonia - FEB 2016 Denies: Hx Asthma, Hx COPD Neurological Medical History: Reports: Hx Migraine. Denies: Hx Cerebrovascular Accident, Hx Seizures Endocrine Medical History: Denies: Hx Diabetes Mellitus Type 2 Renal/ Medical History: Reports: Hx Kidney Stones, Hx Ovarian Cysts - pcos. Denies: Hx Peritoneal Dialysis GI Medical History: Reports: Hx Gastroesophageal Reflux Disease Musculoskeltal Medical History: Denies Hx Arthritis Skin Medical History: Reports Hx Eczema Psychiatric Medical History: Reports: Hx Anxiety, Hx Bipolar Disorder, Hx Depression Traumatic Medical History: Reports: Hx Fractures - hand Past Surgical History: Reports: Hx Adenoidectomy, Hx Section, Hx Cholecystectomy, Hx Kidney (Renal Surgery) - stone removal, Hx Tonsillectomy. Denies: Hx Hysterectomy, Hx Pacemaker - Immunizations Immunizations up to date: Yes Hx Diphtheria, Pertussis, Tetanus Vaccination: Yes Physical Exam - Vital signs Vitals: Temp Pulse Resp BP Pulse Ox 98.2 F 110 H 20 149/95 H 95 11/14/16 20:12 11/14/16 20:12 11/14/16 20:12 11/14/16 20:12 11/14/16 20:12 - Abdominal Tenderness: Tender - Tenderness on both sides of the abdomen in the lower abdomen/pelvis area, nonspecific, limited exam from sitting Course - Vital Signs Vital signs: Temp Pulse Resp BP Pulse Ox 98.2 F 110 H 20 149/95 H 95 11/14/16 20:12 11/14/16 20:12 11/14/16 20:12 11/14/16 20:12 11/14/16 20:12
[2016-11-14 21:47] LABS: ABSOLUTE BASOPHILS # (AUTO) 0.1 10^3/uL (0.0-0.2); ABSOLUTE EOSINOPHILS # (AUTO) 0.5 10^3/uL (0.0-0.6); ABSOLUTE LYMPHOCYTES (AUTO) 3.3 10^3/uL (0.5-4.7); ABSOLUTE MONOCYTES (AUTO) 0.9 10^3/uL (0.1-1.4); ABSOLUTE NEUT (AUTO) 7.5 10^3/uL (1.7-8.2); BASOPHILS % (AUTO) 0.5 % (0-2); EOSINOPHILS % (AUTO) 4.1 % (0-6); HEMATOCRIT 42.8 % (36.0-47.0); HEMOGLOBIN 14.2 g/dL (12.0-15.5); HGB HCT DIFFERENCE -0.2; LYMPHOCYTES % (AUTO) 27.3 % (13-45); MEAN CORPUSCULAR HGB CONC 33.1 g/dL (32.0-36.0); MEAN CORPUSCULAR VOLUME 82 fl (80-97); RED BLOOD COUNT 5.25 10^6/uL (3.72-5.28); SEGMENTED NEUTROPHILS % (AUTO) 61.1 % (42-78); WHITE BLOOD COUNT 12.2 10^3/uL (4.0-10.5)
[2016-11-14 21:51] LABS: APPEARANCE,URINE CLEAR; BILIRUBIN,URINE NEGATIVE (NEGATIVE); GLUCOSE, URINE NEGATIVE (NEGATIVE); KETONES,URINE NEGATIVE (NEGATIVE); LEUKOCYTE ESTERASE,URINE NEGATIVE (NEGATIVE); NITRITE,URINE NEGATIVE (NEGATIVE); PROTEIN,URINE NEGATIVE (NEGATIVE); UROBILINOGEN,URINE NEGATIVE mg/dL (<2.0)
[2016-11-14] MEDS ORDERED: KETOROLAC TROMETHAMINE INJ/PF 30 MG/1 ML SDV IV ONE (22:04)
[2016-11-14 22:05] LABS: ALANINE AMINOTRANSFERASE 47 U/L (9-52); ALBUMIN 3.9 g/dL (3.5-5.0); ALKALINE PHOSPHATASE 67 U/L (38-126); ANION GAP 8 (5-19); ASPARTATE AMINO TRANSFERASE 42 U/L (14-36); BILIRUBIN,DIRECT 0.4 mg/dL (0.0-0.4); BILIRUBIN,TOTAL 0.4 mg/dL (0.2-1.3); BLOOD UREA NITROGEN 10 mg/dL (7-20); CALCIUM 9.7 mg/dL (8.4-10.2); CARBON DIOXIDE 27 mmol/L (22-30); CHLORIDE 102 mmol/L (98-107); CREATININE RESULT 0.75 mg/dL (0.52-1.25); GLUCOSE 92 mg/dL (75-110); POTASSIUM 4.1 mmol/L (3.6-5.0); SODIUM 136.7 mmol/L (137-145); TOTAL PROTEIN 6.6 g/dL (6.3-8.2)
[2016-11-15] MEDS ORDERED: ACETAMINOPHEN 325 MG TABLET PO ONE (00:16)
--- NOTE | 2016-11-15 00:47 | RADIOLOGY REPORT (SQ) ---
EXAM DESCRIPTION: U/S NON OB PEL TV W/DOPPLER COMPLETED DATE/TIME: 11/15/2016 12:05 am REASON FOR STUDY: pelvic pain COMPARISON: 03/14/2011. TECHNIQUE: Dynamic and static grayscale images acquired of the pelvis via transvaginal approach and recorded on PACS. Additional selected color Doppler and spectral images recorded. LIMITATIONS: None. FINDINGS: UTERUS: Contour normal. No mass. ENDOMETRIAL STRIPE: No focal or generalized thickening. No masses. CERVIX: No nabothian cysts. RIGHT OVARY: No abnormal masses. RIGHT OVARY DOPPLER: Ovary not visualized. LEFT OVARY: A 5.5 x 4 x 4 cm left ovary contains a 3.9 x 3.7 x 2.9 cm indeterminate cystic component. LEFT OVARY DOPPLER: Normal arterial vascular flow without evidence for torsion. FREE FLUID: None noted. OTHER: No other significant finding. MEASUREMENTS: UTERUS: 10.3 cm. ENDOMETRIAL STRIPE: 0.2 cm thickness. RIGHT OVARY: Not visualized. LEFT OVARY: 5.5 cm. IMPRESSION: No acute findings. 3.9 cm indeterminate cystic component of the left ovary; sonographic surveillance recommended in 6 weeks. TECHNICAL DOCUMENTATION: JOB ID: [id number] [employer]- All Rights Reserved
--- NOTE | 2016-11-15 00:59 | ER Document Report ---
ED General - General Chief Complaint: Lower Abdominal Pain Stated Complaint: ABDOMINAL PAIN,NAUSEA Time Seen by Provider: 11/14/16 21:36 Notes: Patient is a 35-year-old female presents with complaints of some lower abdominal cramping. No fevers. No vomiting. No diarrhea. Symptoms started today. She says she has had some similar symptoms in the past. She does have history of endometriosis. She does have an IUD. She denies any abnormal vaginal bleeding. No other complaints at this time. TRAVEL OUTSIDE OF THE [place] IN LAST 30 DAYS: No - Related Data Allergies/Adverse Reactions: Sulfa (Sulfonamide Antibiotics) Allergy (Severe, Verified 11/14/16 20:11) ? sumatriptan [From Imitrex] Allergy (Intermediate, Verified 11/14/16 20:11) Hives citalopram hydrobromide [From Celexa] Allergy (Unknown, Verified 11/14/16 20:11) Hives pseudoephedrine HCl [From Sudafed] Allergy (Unknown, Verified 11/14/16 20:11) Hives adhesive tape Adverse Reaction (Unknown, Verified 11/14/16 20:11) Pruritis Past Medical History - Social History Smoking Status: Unknown if Ever Smoked Frequency of alcohol use: None Drug Abuse: None Family History: Arthritis, DM, Hypertension, Malignancy, Other - asthma - Past Medical History Cardiac Medical History: Denies: Hx Coronary Artery Disease, Hx Heart Attack, Hx Hypertension Pulmonary Medical History: Reports: Hx Bronchitis - A CHILD, Hx Pneumonia - FEB 2016 Denies: Hx Asthma, Hx COPD Neurological Medical History: Reports: Hx Migraine. Denies: Hx Cerebrovascular Accident, Hx Seizures Endocrine Medical History: Denies: Hx Diabetes Mellitus Type 2 Renal/ Medical History: Reports: Hx Kidney Stones, Hx Ovarian Cysts - pcos. Denies: Hx Peritoneal Dialysis GI Medical History: Reports: Hx Gastroesophageal Reflux Disease Musculoskeltal Medical History: Denies Hx Arthritis Skin Medical History: Reports Hx Eczema Psychiatric Medical History: Reports: Hx Anxiety, Hx Bipolar Disorder, Hx Depression Traumatic Medical History: Reports: Hx Fractures - hand Past Surgical History: Reports: Hx Adenoidectomy, Hx Section, Hx Cholecystectomy, Hx Kidney (Renal Surgery) - stone removal, Hx Tonsillectomy. Denies: Hx Hysterectomy, Hx Pacemaker - Immunizations Immunizations up to date: Yes Hx Diphtheria, Pertussis, Tetanus Vaccination: Yes Hx Pneumococcal Vaccination: 03/26/00 Review of Systems - Review of Systems Notes: My Normal Review Basic REVIEW OF SYSTEMS: CONSTITUTIONAL : Denies fever, chills, or sweats. Denies recent illness.. RESPIRATORY: Denies cough, cold, or chest congestion. Denies shortness of breath, difficulty breathing, or wheezing. GASTROINTESTINAL: Denies abdominal pain. Denies nausea, vomiting, or diarrhea. Denies constipation. Last BM: GENITOURINARY: Denies difficulty urinating, painful urination, burning, frequency, or blood in urine. FEMALE GENITOURINARY: Pelvic Cramping. MUSCULOSKELETAL: Denies neck or back pain or joint pain or swelling. SKIN: Denies rash or skin lesions. NEUROLOGICAL: Denies altered mental status or loss of consciousness. Denies headache. Denies weakness or paralysis or loss of use of either side. Denies problems with gait or speech. Denies sensory or motor loss. ALL OTHER SYSTEMS REVIEWED AND NEGATIVE. Physical Exam - Vital signs Vitals: Temp Pulse Resp BP Pulse Ox 98.2 F 110 H 20 149/95 H 95 11/14/16 20:12 11/14/16 20:12 11/14/16 20:12 11/14/16 20:12 11/14/16 20:12 - Notes Notes: General Appearance: Well nourished, alert, cooperative, no acute distress, mild obvious discomfort. Vitals: reviewed, See vital signs table. Head: no swelling or tenderness to the head Eyes: PERRL, EOMI, Conjuctiva clear Mouth: No decreasd moisture Lungs: No wheezing, No rales, No rhonci, No accessory muscle use, good air exchange bilaterally. Heart: Normal rate, Regular rythm, No murmur, no rub Abdomen: Normal BS, soft, No rigidity, no suprapubic abdominal tenderness palpation, No guarding, no rebound, no abdominal masses, no organomegaly Extremities: strength 5/5 in all extremities, good pulses in all extremities, no swelling or tenderness in the extremities, no edema. Skin: warm, dry, appropriate color, no rash Neuro: speech clear, oriented x 3, normal affect, responds appropriately to questions. Course - Re-evaluation Re-evalutation: 11/15/16 06:25 Patient's abdominal exam is benign. She has no right lower quadrant tenderness. Her pain is mainly in the suprapubic region. Symptoms are consistent with probable endometriosis. She also does have a large complex cyst. 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 I did print off a copy of her ultrasound reports that she can take it to her gynecology appointment. Encouraged her return to ER immediately if she has any worsening pain, fevers, vomiting, or feels unwell. Patient agrees with plan will be discharged home. Dictation of this chart was performed using voice recognition software; therefore, there may be some unintended grammatical errors. - Vital Signs Vital signs: Temp Pulse Resp BP Pulse Ox 98.2 F 92 18 137/86 H 96 11/15/16 01:07 11/15/16 01:07 11/15/16 01:07 11/15/16 01:07 11/15/16 01:07 - Laboratory Result Diagrams: 11/14/16 21:20 11/14/16 21:20 Laboratory results interpreted by me: 11/14/16 11/14/16 11/14/16 21:20 21:20 21:20 WBC 12.2 H RDW 15.0 H Sodium 136.7 L AST 42 H Urine Blood SMALL H Discharge - Discharge Clinical Impression: Pelvic pain Ovarian cyst Qualifiers: Laterality: left Qualified Code(s): N83.202 - Unspecified ovarian cyst, left side Condition: Good Disposition: HOME, SELF-CARE Additional Instructions: Please follow up with your Cook Manager at the next available appointment. please bring a copy of your ultrasound report so they can arrange for further workup and monitoring of your cyst. please return to the ER if you have worsening pain, heavy vaginal bleeding, abnormal vaginal discharge, fever,s or if you feel unwell. Referrals: BAN MORA MD [Primary Care Provider] - Follow up as needed
[2016-11-15 01:09] VITALS: BP 137/86
== END 2016-11-15 01:07 | disposition home or self-care (01) ==
LOC: ER 20:05
DX: E28.2 Polycystic ovarian syndrome (principal); R10.2 Pelvic and perineal pain; Z97.5 Presence of (intrauterine) contraceptive device; Z88.2 Allergy status to sulfonamides; Z88.6 Allergy status to analgesic agent; Z88.8 Allergy status to other drugs, medicaments and biological substances; Z87.442 Personal history of urinary calculi; Z90.49 Acquired absence of other specified parts of digestive tract
CPT/HCPCS: 99284; 96374; 36415; 85025; 81025; 80053; 81001; 76830; 93976; J1885; J7030

== ENCOUNTER 2016-12-15 19:26 | Emergency (ER) | payer SELFPAY ==
[2016-12-15] MEDS ORDERED: PROCHLORPERAZINE MALEATE 10 MG TABLET PO ONE (20:11)
[2016-12-15] MEDS ORDERED: DIPHENHYDRAMINE HCL 50 MG CAPSULE PO ONE (20:11)
[2016-12-15] MEDS ORDERED: NAPROXEN 250 MG TABLET PO ONE (20:11)
--- NOTE | 2016-12-15 20:13 | ER Document Report ---
ED Medical Screen (RME) - General Chief Complaint: Headache Stated Complaint: HEADACHE Time Seen by Provider: 12/15/16 20:07 Notes: This 36-year-old female patient comes emergency room complaining of 4 day history of migraine headache. She reports that she has a diagnosis of pseudotumor cerebri and takes Diamox for this. She did have CT scans of her brain here in 2010 2011 and both were read as entirely normal. She also has been taking Stadol but has run out, lost her Medicaid, is unable to see her prescribing neurologist. I have greeted and performed a rapid initial assessment of this patient. A comprehensive ED assessment and evaluation of the patient, analysis of test results and completion of the medical decision making process will be conducted by additional ED providers. TRAVEL OUTSIDE OF THE [place] IN LAST 30 DAYS: No - Related Data Allergies/Adverse Reactions: Sulfa (Sulfonamide Antibiotics) Allergy (Severe, Verified 12/15/16 19:30) ? sumatriptan [From Imitrex] Allergy (Intermediate, Verified 12/15/16 19:30) Hives citalopram hydrobromide [From Celexa] Allergy (Unknown, Verified 12/15/16 19:30) Hives pseudoephedrine HCl [From Sudafed] Allergy (Unknown, Verified 12/15/16 19:30) Hives adhesive tape Adverse Reaction (Unknown, Verified 12/15/16 19:30) Pruritis Past Medical History - Social History Chew tobacco use (# tins/day): No Frequency of alcohol use: None Drug Abuse: None - Past Medical History Cardiac Medical History: Denies: Hx Coronary Artery Disease, Hx Heart Attack, Hx Hypertension Pulmonary Medical History: Reports: Hx Bronchitis - A CHILD, Hx Pneumonia - FEB 2016 Denies: Hx Asthma, Hx COPD Neurological Medical History: Reports: Hx Migraine. Denies: Hx Cerebrovascular Accident, Hx Seizures Endocrine Medical History: Denies: Hx Diabetes Mellitus Type 2 Renal/ Medical History: Reports: Hx Kidney Stones, Hx Ovarian Cysts - pcos. Denies: Hx Peritoneal Dialysis GI Medical History: Reports: Hx Gastroesophageal Reflux Disease Musculoskeltal Medical History: Denies Hx Arthritis Skin Medical History: Reports Hx Eczema Psychiatric Medical History: Reports: Hx Anxiety, Hx Bipolar Disorder, Hx Depression Traumatic Medical History: Reports: Hx Fractures - hand Past Surgical History: Reports: Hx Adenoidectomy, Hx Section, Hx Cholecystectomy, Hx Kidney (Renal Surgery) - stone removal, Hx Tonsillectomy. Denies: Hx Hysterectomy, Hx Pacemaker - Immunizations Immunizations up to date: Yes Hx Diphtheria, Pertussis, Tetanus Vaccination: Yes Physical Exam - Vital signs Vitals: Temp Pulse Resp BP Pulse Ox 98.7 F 112 H 19 145/91 H 95 12/15/16 19:30 12/15/16 19:30 12/15/16 19:30 12/15/16 19:30 12/15/16 19:30 Course - Vital Signs Vital signs: Temp Pulse Resp BP Pulse Ox 98.7 F 112 H 19 145/91 H 95 12/15/16 19:30 12/15/16 19:30 12/15/16 19:30 12/15/16 19:30 12/15/16 19:30
[2016-12-15] MEDS ORDERED: PROCHLORPERAZINE EDISYLATE INJ 10 MG/2 ML VIAL IV ONE (21:05)
[2016-12-15] MEDS ORDERED: KETOROLAC TROMETHAMINE INJ/PF 30 MG/1 ML SDV IV ONE (21:06)
--- NOTE | 2016-12-15 21:23 | ER Document Report ---
ED General - General Chief Complaint: Headache Stated Complaint: HEADACHE Time Seen by Provider: 12/15/16 20:07 Notes: Patient is a 36-year-old female with a past medical history of morbid obesity, idiopathic intra-cranial hypertension, follows with neurology also states that she has not been doing so recently due to loss of Medicaid who presents with 4 days of a headache. Does describe it as a severe, constant, throbbing headache over the entirety of her scalp. States that she has tried [id number] medications without any improvement of her pain. She states that she had discontinued her Diamox due to loss of insurance but did find an old bottle and restarted the medicine approximately 3 days ago. This is also not helped with her symptoms. She notes that movement, lights and sounds worsen her pain. She has a history of similar headaches in the past. She denies any focal weakness, numbness, fever or altered mental status. She has not seen her primary doctor regarding today's concerns. TRAVEL OUTSIDE OF THE [place] IN LAST 30 DAYS: No - Related Data Allergies/Adverse Reactions: Sulfa (Sulfonamide Antibiotics) Allergy (Severe, Verified 12/15/16 19:30) ? sumatriptan [From Imitrex] Allergy (Intermediate, Verified 12/15/16 19:30) Hives citalopram hydrobromide [From Celexa] Allergy (Unknown, Verified 12/15/16 19:30) Hives pseudoephedrine HCl [From Sudafed] Allergy (Unknown, Verified 12/15/16 19:30) Hives adhesive tape Adverse Reaction (Unknown, Verified 12/15/16 19:30) Pruritis Past Medical History - General Information source: Patient - Social History Smoking Status: Never Smoker Chew tobacco use (# tins/day): No Frequency of alcohol use: None Drug Abuse: None Family History: Arthritis, DM, Hypertension, Malignancy, Other - asthma - Past Medical History Cardiac Medical History: Denies: Hx Coronary Artery Disease, Hx Heart Attack, Hx Hypertension Pulmonary Medical History: Reports: Hx Bronchitis - A CHILD, Hx Pneumonia - FEB 2016 Denies: Hx Asthma, Hx COPD Neurological Medical History: Reports: Hx Migraine. Denies: Hx Cerebrovascular Accident, Hx Seizures Endocrine Medical History: Denies: Hx Diabetes Mellitus Type 2 Renal/ Medical History: Reports: Hx Kidney Stones, Hx Ovarian Cysts - pcos. Denies: Hx Peritoneal Dialysis GI Medical History: Reports: Hx Gastroesophageal Reflux Disease Musculoskeltal Medical History: Denies Hx Arthritis Skin Medical History: Reports Hx Eczema Psychiatric Medical History: Reports: Hx Anxiety, Hx Bipolar Disorder, Hx Depression Traumatic Medical History: Reports: Hx Fractures - hand Past Surgical History: Reports: Hx Adenoidectomy, Hx Section, Hx Cholecystectomy, Hx Kidney (Renal Surgery) - stone removal, Hx Tonsillectomy. Denies: Hx Hysterectomy, Hx Pacemaker - Immunizations Immunizations up to date: Yes Hx Diphtheria, Pertussis, Tetanus Vaccination: Yes Hx Pneumococcal Vaccination: 03/26/00 Review of Systems - Review of Systems Notes: Constitutional: Negative for fever. HENT: Negative for sore throat. Eyes: Negative for visual changes. Cardiovascular: Negative for chest pain. Respiratory: Negative for shortness of breath. Gastrointestinal: Negative for abdominal pain, vomiting or diarrhea. Genitourinary: Negative for dysuria. Musculoskeletal: Negative for back pain. Skin: Negative for rash. Neurological: Positive for headache 10 point ROS negative except as marked above and in HPI. Physical Exam - Vital signs Vitals: Temp Pulse Resp BP Pulse Ox 98.7 F 112 H 19 145/91 H 95 12/15/16 19:30 12/15/16 19:30 12/15/16 19:30 12/15/16 19:30 12/15/16 19:30 Interpretation: Tachycardic Notes: PHYSICAL EXAMINATION: GENERAL: Well-appearing, well-nourished and in no acute distress. HEAD: Atraumatic, normocephalic. EYES: Pupils equal round and reactive to light, extraocular movements intact, sclera anicteric, conjunctiva are normal. ENT: nares patent, oropharynx clear without exudates. Moist mucous membranes. NECK: Normal range of motion, supple without lymphadenopathy LUNGS: Breath sounds clear to auscultation bilaterally and equal. No wheezes rales or rhonchi. HEART: Regular rate and rhythm without murmurs ABDOMEN: Morbidly obese abdomen. Soft, nontender, normoactive bowel sounds. No guarding, no rebound. No masses appreciated. EXTREMITIES: Normal range of motion, no pitting or edema. No cyanosis. NEUROLOGICAL: Face symmetric. Tongue protrudes midline. Extraocular motions intact. Pupils are 2 mm and equally reactive. Normal speech, normal gait. 5 out of 5 strength in both the distal and proximal upper and lower extremities bilaterally. Sensation is grossly intact throughout. Finger to nose testing normal. Pronator drift normal. PSYCH: Normal mood, normal affect. SKIN: Warm, Dry, normal turgor, no rashes or lesions noted. Course - Re-evaluation Re-evalutation: 12/15/16 21:21 Presentation of a headache that appears to be most consistent with an exacerbation of her baseline idiopathic intercranial hypertension. Patient admits that she did discontinue her Diamox due to lack of insurance but has been able to restart it in the past several days. Headache was not maximal in onset, patient has no focal neurologic deficits, no nuchal rigidity, vital signs within normal limits, no papilledema, and patient is overall well in appearance. Based on clinical history and examination I do not suspect an acute subarachnoid hemorrhage, dural venous sinus thrombosis, acute meningitis, or intercranial mass. Given my low clinical suspicion for any acute life- threatening etiology, I do not feel advanced neuro imaging or laboratory testing is indicated at this time. Will proceed with headache cocktail and reassess. 12/15/16 21:47 Patient has had complete resolution of her headache at this time. I will re- prescribe her Diamox. At this time will discharge with return precautions and follow-up recommendations. Verbal discharge instructions given a the bedside and opportunity for questions given. Medication warnings reviewed. Patient is in agreement with this plan and has verbalized understanding of return precautions and the need for primary care follow-up in the next 24-72 hours. - Vital Signs Vital signs: Temp Pulse Resp BP Pulse Ox 98.7 F 112 H 19 145/91 H 95 12/15/16 19:30 12/15/16 19:30 12/15/16 19:30 12/15/16 19:30 12/15/16 19:30 Discharge - Discharge Clinical Impression: Morbid obesity, Idiopathic intracranial hypertension Headache Qualifiers: Headache type: unspecified Headache chronicity pattern: acute headache Intractability: not intractable Qualified Code(s): R51 - Headache Condition: Good Disposition: HOME, SELF-CARE Additional Instructions: You have been seen in the Emergency Department (ED) for a headache. Please resume the Diamox that has been prescribed. As we have discussed, please follow up with your primary care doctor as soon as possible regarding today's ED visit and your headache symptoms. Call your doctor or return to the ED if you have a worsening headache, sudden and severe headache, confusion, slurred speech, facial droop, weakness or numbness in any arm or leg, extreme fatigue, or other symptoms that concern you. As we discussed today, please strongly consider losing weight. Your obesity will result in a shorter life and serious diagnoses including heart attacks, stroke, diabetes, high blood pressure, high cholesterol, kidney failure, and will also result in a much less enjoyable life due to these chronic conditions. Focus on gradual life style changes including removing sugared beverages and processed foods from your diet abd at least 30 minutes of moderate activity daily. Try to target 4-5lbs of weight loss per month. Prescriptions: Acetazolamide [Diamox 250 mg Tab] 250 mg PO DAILY #30 tab
[2016-12-15 22:27] VITALS: BP 111/58
== END 2016-12-15 22:27 | disposition home or self-care (01) ==
LOC: ER 19:26
DX: G93.2 Benign intracranial hypertension (principal); R51 Headache; E11.9 Type 2 diabetes mellitus without complications; E66.01 Morbid (severe) obesity due to excess calories; Z68.45 Body mass index [BMI] 70 or greater, adult; Z88.2 Allergy status to sulfonamides; Z88.6 Allergy status to analgesic agent; Z88.8 Allergy status to other drugs, medicaments and biological substances; Z86.69 Personal history of other diseases of the nervous system and sense organs; R00.0 Tachycardia, unspecified
CPT/HCPCS: 99283; 96374; 96375; J1885; J0780; S0183

== ENCOUNTER 2016-12-29 13:26 | Emergency (ER) | payer SELFPAY ==
[2016-12-29] MEDS ORDERED: IPRATROPIUM/ALBUTEROL 0.5-2.5 MG/3 ML AMPUL NEB ONE (13:57)
--- NOTE | 2016-12-29 14:06 | ER Document Report ---
ED General - General Chief Complaint: Cold Symptoms Stated Complaint: DIFFICULTY BREATHING Time Seen by Provider: 12/29/16 13:54 Mode of Arrival: Ambulatory Information source: Patient Notes: 36 yr old female presents with complaints of 4 day duration of body aches and non productive cough. Pt notes this happens every few months, denies any fevers or chills. pt admits to post tussive emesis TRAVEL OUTSIDE OF THE [place] IN LAST 30 DAYS: No - HPI Onset: Last week Onset/Duration: Persistent Quality of pain: Achy Severity: Mild Associated symptoms: Nonproductive cough, Productive cough, Shortness of breath Exacerbated by: Coughing Relieved by: Denies Similar symptoms previously: Yes Recently seen / treated by doctor: Yes - Related Data Allergies/Adverse Reactions: Sulfa (Sulfonamide Antibiotics) Allergy (Severe, Verified 12/29/16 13:41) ? sumatriptan [From Imitrex] Allergy (Intermediate, Verified 12/29/16 13:41) Hives citalopram hydrobromide [From Celexa] Allergy (Unknown, Verified 12/29/16 13:41) Hives pseudoephedrine HCl [From Sudafed] Allergy (Unknown, Verified 12/29/16 13:41) Hives adhesive tape Adverse Reaction (Unknown, Verified 12/29/16 13:41) Pruritis Past Medical History - Social History Smoking Status: Never Smoker Cigarette use (# per day): No Chew tobacco use (# tins/day): No Smoking Education Provided: No Frequency of alcohol use: None Family History: Arthritis, DM, Hypertension, Malignancy, Other - asthma - Past Medical History Cardiac Medical History: Denies: Hx Coronary Artery Disease, Hx Heart Attack, Hx Hypertension Pulmonary Medical History: Reports: Hx Bronchitis - A CHILD, Hx Pneumonia - FEB 2016 Denies: Hx Asthma, Hx COPD Neurological Medical History: Reports: Hx Migraine. Denies: Hx Cerebrovascular Accident, Hx Seizures Endocrine Medical History: Denies: Hx Diabetes Mellitus Type 2 Renal/ Medical History: Reports: Hx Kidney Stones, Hx Ovarian Cysts - pcos. Denies: Hx Peritoneal Dialysis GI Medical History: Reports: Hx Gastroesophageal Reflux Disease Musculoskeltal Medical History: Denies Hx Arthritis Skin Medical History: Reports Hx Eczema Psychiatric Medical History: Reports: Hx Anxiety, Hx Bipolar Disorder, Hx Depression Traumatic Medical History: Reports: Hx Fractures - hand Past Surgical History: Reports: Hx Adenoidectomy, Hx Section, Hx Cholecystectomy, Hx Kidney (Renal Surgery) - stone removal, Hx Tonsillectomy. Denies: Hx Hysterectomy, Hx Pacemaker - Immunizations Immunizations up to date: Yes Hx Diphtheria, Pertussis, Tetanus Vaccination: Yes Hx Pneumococcal Vaccination: 03/26/00 Review of Systems - Review of Systems Notes: REVIEW OF SYSTEMS: CONSTITUTIONAL : Denies fever, chills, or sweats. Denies recent illness. EENT: Denies eye, ear, throat, or mouth pain or symptoms. Denies nasal or sinus congestion or discharge. Denies throat, tongue, or mouth swelling or difficulty swallowing. CARDIOVASCULAR: Denies chest pain. Denies palpitations or racing or irregular heart beat. Denies ankle edema. RESPIRATORY: admits to cough, mild chest wall pain . GASTROINTESTINAL: Denies abdominal pain or distention. Denies nausea, vomiting , or diarrhea. Denies blood in vomitus, stools, or per rectum. Denies black, tarry stools. Denies constipation. GENITOURINARY: Denies difficulty urinating, painful urination, burning, frequency, blood in urine, or discharge. FEMALE GENITOURINARY: Denies vaginal bleeding, heavy or abnormal periods, irregular periods. Denies vaginal discharge or odor. MUSCULOSKELETAL: Denies back or neck pain or stiffness. Denies joint pain or swelling. SKIN: Denies rash, lesions or sores. HEMATOLOGIC : Denies easy bruising or bleeding. LYMPHATIC: Denies swollen, enlarged glands. NEUROLOGICAL: Denies confusion or altered mental status. Denies passing out or loss of consciousness. Denies dizziness or lightheadedness. Denies headache. Denies weakness or paralysis or loss of use of either side. Denies problems with gait or speech. Denies sensory loss, numbness, or tingling. Denies seizures. PSYCHIATRIC: Denies anxiety or stress. Denies depression, suicidal ideation, or homicidal ideation. ALL OTHER SYSTEMS REVIEWED AND NEGATIVE. PHYSICAL EXAMINATION: GENERAL: Well-appearing, well-nourished and in no acute distress. HEAD: Atraumatic, normocephalic. EYES: Pupils equal round and reactive to light, extraocular movements intact, conjunctiva are normal. ENT: Nares patent, oropharynx clear without exudates. Moist mucous membranes. NECK: Normal range of motion, supple without lymphadenopathy LUNGS: Breath sounds clear to auscultation bilaterally and equal. No wheezes rales or rhonchi. HEART: Regular rate and rhythm without murmurs ABDOMEN: Soft, nontender, nondistended abdomen. No guarding, no rebound. No masses appreciated. Female : deferred Musculoskeletal: Normal range of motion, no pitting or edema. No cyanosis. NEUROLOGICAL: Cranial nerves grossly intact. Normal speech, normal gait. Normal sensory, motor exams PSYCH: Normal mood, normal affect. SKIN: Warm, Dry, normal turgor, no rashes or lesions noted. Dictation was performed using [employer] voice recognition software Physical Exam - Vital signs Vitals: Temp Pulse Resp BP Pulse Ox 97.5 F 98 22 H 150/85 H 95 12/29/16 13:42 12/29/16 13:42 12/29/16 13:42 12/29/16 13:42 12/29/16 13:42 Course - Re-evaluation Re-evalutation: 12/29/16 14:06 xray pending, pt has probabl viral bronchitis given presentation, will rule out pneumona, chf and influenza 12/29/16 15:41 Chest x-ray no numb pneumonia patient noted improvement with breathing treatment. She will be discharged home with prednisone as this appears to be bronchitis nature. Patient's noted to be slightly tachycardic upon discharge she states she always gets jittery after breathing treatments Patient has no DVT or PE risk factors After performing a Medical Screening Examination, I estimate there is LOW risk for ACUTE CORONARY SYNDROME, RESPIRATORY FAILURE, SEPSIS OR MENINGITIS, thus I consider the discharge disposition reasonable. I have reevaluated this patient multiple times and no significant life threatening changes are noted. The patient and I have discussed the diagnosis and risks, and we agree with discharging home with close follow-up. We also discussed returning to the Emergency Department immediately if new or worsening symptoms occur. We have discussed the symptoms which are most concerning (e.g., changing or worsening pain, trouble swallowing or breathing, neck stiffness, fever) that necessitate immediate return. - Vital Signs Vital signs: Temp Pulse Resp BP Pulse Ox 98.3 F 109 H 20 128/81 H 96 12/29/16 15:31 12/29/16 15:31 12/29/16 15:31 12/29/16 15:31 12/29/16 15:31 Discharge - Discharge Clinical Impression: Bronchitis Condition: Stable Disposition: HOME, SELF-CARE Instructions: Bronchitis With Bronchospasm (Wheezing) ([facility]) Additional Instructions: Follow up with your physician tomorrow for further care or return to the ED IMMEDIATELY if symptoms worsen or new concerns occur. If you cannot afford to follow up with your primary care physician a list of low cost clinics have been provided at the end of your discharge papers as well. Prescriptions: Prednisone [Deltasone 20 mg Tablet] 3 tab PO DAILY 5 Days tablet
--- NOTE | 2016-12-29 15:32 | RADIOLOGY REPORT (SQ) ---
EXAM DESCRIPTION: CHEST PA/LAT COMPLETED DATE/TIME: 12/29/2016 3:08 pm REASON FOR STUDY: sob COMPARISON: 03/19/2015 EXAM PARAMETERS: NUMBER OF VIEWS: two views TECHNIQUE: Digital Frontal and Lateral radiographic views of the chest acquired. RADIATION DOSE: NA LIMITATIONS: none FINDINGS: LUNGS AND PLEURA: No opacities, masses or pneumothorax. No pleural effusion. MEDIASTINUM AND HILAR STRUCTURES: No masses or contour abnormalities. HEART AND VASCULAR STRUCTURES: Heart normal size. No evidence for failure. BONES: No acute findings. HARDWARE: None in the chest. OTHER: No other significant finding. IMPRESSION: NO SIGNIFICANT RADIOGRAPHIC FINDING IN THE CHEST. TECHNICAL DOCUMENTATION: JOB ID: [id number] [employer]- All Rights Reserved
[2016-12-29 15:34] VITALS: BP 128/81
== END 2016-12-29 15:34 | disposition home or self-care (01) ==
LOC: ER 13:26
DX: J40 Bronchitis, not specified as acute or chronic (principal); R06.02 Shortness of breath; M79.1 Myalgia; R05 Cough
CPT/HCPCS: 94640; 99283; 87804; 71020; J7620

== ENCOUNTER 2017-03-06 07:24 | Emergency (ER) | payer SELFPAY ==
[2017-03-06 07:32] VITALS: BP 137/86
--- NOTE | 2017-03-06 08:19 | ER Document Report ---
ED Respiratory Problem - General Mode of Arrival: Ambulatory Information source: Patient TRAVEL OUTSIDE OF THE [place] IN LAST 30 DAYS: No <REJI MARRUFO - Last Filed: 03/06/17 15:21> <SAVITA XAVIER - Last Filed: 03/07/17 16:19> - General Chief Complaint: Chest Congestion Stated Complaint: CONGESTION Time Seen by Provider: 03/06/17 07:43 Notes: Patient is a 36-year-old female who presents to the emergency department today with complaints of a cough, shortness of breath, and "low-grade fever, nothing over 99F". Patient states that she has had these symptoms for the last 3 or 4 days. Patient states her daughter was discharged from [facility] and came home ill and she thinks she may have gotten it from her. Patient denies a history of asthma, sore throat, or nasal congestion. Patient did not receive a flu shot this year. (REJI MARRUFO) - Related Data Allergies/Adverse Reactions: Sulfa (Sulfonamide Antibiotics) Allergy (Severe, Verified 03/06/17 07:26) ? sumatriptan [From Imitrex] Allergy (Intermediate, Verified 03/06/17 07:26) Hives citalopram hydrobromide [From Celexa] Allergy (Unknown, Verified 03/06/17 07:26) Hives pseudoephedrine HCl [From Sudafed] Allergy (Unknown, Verified 03/06/17 07:26) Hives adhesive tape Adverse Reaction (Unknown, Verified 03/06/17 07:26) Pruritis Past Medical History - General Information source: Patient - Social History Smoking Status: Never Smoker Cigarette use (# per day): No Chew tobacco use (# tins/day): No Frequency of alcohol use: None Drug Abuse: None Lives with: Family Family History: Arthritis, DM, Hypertension, Malignancy, Other - asthma Patient has suicidal ideation: No Patient has homicidal ideation: No Pulmonary Medical History: Reports: Hx Bronchitis - A CHILD, Hx Pneumonia - FEB 2016 Neurological Medical History: Reports: Hx Migraine Renal/ Medical History: Reports: Hx Kidney Stones, Hx Ovarian Cysts - pcos GI Medical History: Reports: Hx Gastroesophageal Reflux Disease Skin Medical History: Reports Hx Eczema Psychiatric Medical History: Reports: Hx Anxiety, Hx Bipolar Disorder, Hx Depression Traumatic Medical History: Reports: Hx Fractures - hand Past Surgical History: Reports: Hx Adenoidectomy, Hx Section, Hx Cholecystectomy, Hx Kidney (Renal Surgery) - stone removal, Hx Tonsillectomy - Immunizations Immunizations up to date: Yes Hx Diphtheria, Pertussis, Tetanus Vaccination: Yes Hx Pneumococcal Vaccination: 03/26/00 <REJI MARRUFO - Last Filed: 03/06/17 15:21> Review of Systems - Review of Systems Constitutional: See HPI, Fever EENT: denies: Nose congestion, Throat pain Cardiovascular: No symptoms reported Respiratory: See HPI, Cough, Short of breath Gastrointestinal: No symptoms reported Genitourinary: No symptoms reported Female Genitourinary: No symptoms reported Musculoskeletal: No symptoms reported Skin: No symptoms reported Hematologic/Lymphatic: No symptoms reported Neurological/Psychological: No symptoms reported -: Yes All other systems reviewed and negative <REJI MARRUFO - Last Filed: 03/06/17 15:21> Physical Exam <REJI MARRUFO - Last Filed: 03/06/17 15:21> <SAVITA XAVIER - Last Filed: 03/07/17 16:19> - Vital signs Vitals: Temp Pulse Resp BP Pulse Ox 98.2 F 116 H 20 137/86 H 93 03/06/17 07:31 03/06/17 07:31 03/06/17 07:31 03/06/17 07:31 03/06/17 07:31 - Notes Notes: Physical Exam: General: Alert, morbidly obese, appears uncomfortable. HEENT: Normocephalic. Atraumatic. PERRL. Extraocular movements intact. Oropharynx clear. Nasal congestion. Neck: Supple. Non-tender. Respiratory: No respiratory distress. Clear and equal breath sounds bilaterally. Cardiovascular: Regular rate and rhythm. Abdominal: Morbidly obese. Non-tender. No distension. Normal Bowel Sounds. Back: Non-tender. No deformity or step off. Extremities: Moves all four extremities. Upper extremities: Normal inspection. Normal ROM. Lower extremities: Normal inspection. No edema. Normal ROM. Neurological: Normal cognition. AAOx4. Normal speech. Psychological: Normal affect. Normal Mood. Skin: Warm. Dry. Normal color. (REJI MARRUFO) Course <REJI MARRUFO - Last Filed: 03/06/17 15:21> - Diagnostic Test Radiology reviewed: Reports reviewed <SAVITA XAVIER - Last Filed: 03/07/17 16:19> - Re-evaluation Re-evalutation: 03/07/17 Patient with no acute findings on chest x-ray, however symptoms are concerning for possible early pneumonia. Patient will be started on antibiotics. Patient is in no distress at the time of discharge. She is to follow-up with her doctor and return if she has any worsening or concerning symptoms. Patient is agreeable to this plan. Stable for discharge. (SAVITA XAVIER) - Vital Signs Vital signs: Temp Pulse Resp BP Pulse Ox 98.2 F 116 H 20 137/86 H 93 03/06/17 07:31 03/06/17 07:31 03/06/17 07:31 03/06/17 07:31 03/06/17 07:31 - Laboratory Laboratory results interpreted by me: 03/06/17 08:00 Urine Protein 30 H Urine Blood LARGE H Ur Leukocyte Esterase MODERATE H Discharge <REJI MARRUFO - Last Filed: 03/06/17 15:21> <SAVITA XAVIER - Last Filed: 03/07/17 16:19> - Discharge Clinical Impression: Upper respiratory infection Qualifiers: URI type: unspecified URI Qualified Code(s): J06.9 - Acute upper respiratory infection, unspecified Condition: Stable Disposition: HOME, SELF-CARE Instructions: Upper Respiratory Illness ([facility]) Prescriptions: Acetaminophen with Codeine [Tylenol with Codeine #3 Tablet] 1 each PO QHS #4 tablet Benzonatate [Tessalon Perle 100 mg Capsule] 100 mg PO Q8HP PRN #40 cap PRN Reason: Azithromycin [Zithromax 250 mg Tablet] 250 mg PO ASDIR PRN #6 tablet PRN Reason: Forms: Return to Work Scribe Attestation: 03/07/17 16:19 I personally performed the services described in the documentation, reviewed and edited the documentation which was dictated to the scribe in my presence, and it accurately records my words and actions. (SAVITA XAVIER) Scribe Documentation - Scribe Written by Scribe:: Jeff Leung, 03/06/2017 [id number] acting as scribe for :: Louie <REJI MARRUFO - Last Filed: 03/06/17 15:21>
[2017-03-06 08:22] LABS: APPEARANCE,URINE CLOUDY; BILIRUBIN,URINE NEGATIVE (NEGATIVE); CALCIUM OXALATE CRYSTALS,URINE MANY /HPF; GLUCOSE, URINE NEGATIVE (NEGATIVE); KETONES,URINE NEGATIVE (NEGATIVE); LEUKOCYTE ESTERASE,URINE MODERATE (NEGATIVE); NITRITE,URINE NEGATIVE (NEGATIVE); PROTEIN,URINE 30 mg/dL (NEGATIVE); URINE SPECIFIC GRAVITY 1.028; UROBILINOGEN,URINE NEGATIVE mg/dL (<2.0)
[2017-03-06] MEDS ORDERED: BENZONATATE 100 MG CAPSULE PO ONE (08:32)
[2017-03-06] MEDS ORDERED: AZITHROMYCIN 250 MG TABLET PO ONE (08:32)
--- NOTE | 2017-03-06 08:36 | RADIOLOGY REPORT (SQ) ---
EXAM DESCRIPTION: CHEST PA/LAT COMPLETED DATE/TIME: 03/06/2017 8:18 am REASON FOR STUDY: cough COMPARISON: 06/14/2016, 12/29/2016 EXAM PARAMETERS: NUMBER OF VIEWS: two views TECHNIQUE: Digital Frontal and Lateral radiographic views of the chest acquired. RADIATION DOSE: NA LIMITATIONS: none FINDINGS: LUNGS AND PLEURA: No opacities, masses or pneumothorax. No pleural effusion. MEDIASTINUM AND HILAR STRUCTURES: No masses or contour abnormalities. HEART AND VASCULAR STRUCTURES: Heart normal size. No evidence for failure. BONES: No acute findings. HARDWARE: None in the chest. OTHER: No other significant finding. IMPRESSION: NO SIGNIFICANT RADIOGRAPHIC FINDING IN THE CHEST. TECHNICAL DOCUMENTATION: JOB ID: [id number] [employer]- All Rights Reserved
== END 2017-03-06 08:43 | disposition home or self-care (01) ==
LOC: ER 07:24
DX: J06.9 Acute upper respiratory infection, unspecified (principal); R05 Cough; R06.02 Shortness of breath; R09.81 Nasal congestion; E66.01 Morbid (severe) obesity due to excess calories; Z68.45 Body mass index [BMI] 70 or greater, adult; Z88.2 Allergy status to sulfonamides; Z88.6 Allergy status to analgesic agent; Z88.8 Allergy status to other drugs, medicaments and biological substances; Z87.01 Personal history of pneumonia (recurrent)
CPT/HCPCS: 71020; 81001; 81025; 99283

== ENCOUNTER 2017-11-28 09:01 | Emergency (ER) | payer SELFPAY ==
[2017-11-28] MEDS ORDERED: NORMAL SALINE 1000 ML 1,000 ML IV ONE (09:30)
[2017-11-28] MEDS ORDERED: MECLIZINE HCL 25 MG TABLET PO ONE (09:30)
--- NOTE | 2017-11-28 09:33 | ER Document Report ---
ED Medical Screen (RME) - General Chief Complaint: Dizziness Stated Complaint: DIZZY Time Seen by Provider: 11/28/17 09:24 TRAVEL OUTSIDE OF THE [place] IN LAST 30 DAYS: No - HPI Notes: 11/28/17 09:32 Patient coming in for dizziness nausea and dry mouth states history of idiopathic intracranial hypertension is on Diamox however is not taking this for quite some time because she feels dry. Patient states most time with increased intracranial pressure across her have a migraine headache. 11/28/17 09:32 - Related Data Allergies/Adverse Reactions: Sulfa (Sulfonamide Antibiotics) Allergy (Severe, Verified 11/28/17 09:02) ? sumatriptan [From Imitrex] Allergy (Intermediate, Verified 11/28/17 09:02) Hives citalopram hydrobromide [From Celexa] Allergy (Unknown, Verified 11/28/17 09:02) Hives pseudoephedrine HCl [From Sudafed] Allergy (Unknown, Verified 11/28/17 09:02) Hives adhesive tape Adverse Reaction (Unknown, Verified 11/28/17 09:02) Pruritis Past Medical History - Past Medical History Cardiac Medical History: Denies: Hx Coronary Artery Disease, Hx Heart Attack, Hx Hypertension Pulmonary Medical History: Reports: Hx Bronchitis - A CHILD, Hx Pneumonia - FEB 2016 Denies: Hx Asthma, Hx COPD Neurological Medical History: Reports: Hx Migraine. Denies: Hx Cerebrovascular Accident, Hx Seizures Endocrine Medical History: Denies: Hx Diabetes Mellitus Type 2 Renal/ Medical History: Reports: Hx Kidney Stones, Hx Ovarian Cysts - pcos. Denies: Hx Peritoneal Dialysis GI Medical History: Reports: Hx Gastroesophageal Reflux Disease Musculoskeltal Medical History: Denies Hx Arthritis Skin Medical History: Reports Hx Eczema Psychiatric Medical History: Reports: Hx Anxiety, Hx Bipolar Disorder, Hx Depression Traumatic Medical History: Reports: Hx Fractures - hand Past Surgical History: Reports: Hx Adenoidectomy, Hx Section, Hx Cholecystectomy, Hx Kidney (Renal Surgery) - stone removal, Hx Tonsillectomy. Denies: Hx Hysterectomy, Hx Pacemaker - Immunizations Immunizations up to date: Yes Hx Diphtheria, Pertussis, Tetanus Vaccination: Yes Review of Systems - Review of Systems Constitutional: Other - Dizziness Physical Exam - Vital signs Vitals: Temp Pulse Resp BP Pulse Ox 98.2 F 108 H 18 142/88 H 97 11/28/17 09:09 11/28/17 09:09 11/28/17 09:09 11/28/17 09:09 11/28/17 09:09 - Respiratory Respiratory status: No respiratory distress Chest status: Nontender Breath sounds: Normal Chest palpation: Normal - Cardiovascular Rhythm: Regular Heart sounds: Normal auscultation Course - Vital Signs Vital signs: Temp Pulse Resp BP Pulse Ox 98.2 F 108 H 18 142/88 H 97 11/28/17 09:09 11/28/17 09:09 11/28/17 09:09 11/28/17 09:09 11/28/17 09:09
[2017-11-28 10:05] LABS: ABSOLUTE BASOPHILS # (AUTO) 0.1 10^3/uL (0.0-0.2); ABSOLUTE EOSINOPHILS # (AUTO) 0.3 10^3/uL (0.0-0.6); ABSOLUTE LYMPHOCYTES (AUTO) 3.7 10^3/uL (0.5-4.7); ABSOLUTE MONOCYTES (AUTO) 0.7 10^3/uL (0.1-1.4); ABSOLUTE NEUT (AUTO) 6.6 10^3/uL (1.7-8.2); BASOPHILS % (AUTO) 0.6 % (0-2); EOSINOPHILS % (AUTO) 2.9 % (0-6); HEMATOCRIT 43.9 % (36.0-47.0); HEMOGLOBIN 14.9 g/dL (12.0-15.5); LYMPHOCYTES % (AUTO) 32.2 % (13-45); MEAN CORPUSCULAR HEMOGLOBIN 27.9 pg (27.0-33.4); MEAN CORPUSCULAR VOLUME 82 fl (80-97); MONOCYTES % (AUTO) 6.5 % (3-13); PLATELET COUNT 320 10^3/uL (150-450); RED BLOOD COUNT 5.34 10^6/uL (3.72-5.28); RED CELL DISTRIBUTION WIDTH 14.6 % (11.5-14.0); SEGMENTED NEUTROPHILS % (AUTO) 57.8 % (42-78); TOTAL CELLS COUNTED % (AUTO) 100 %; WHITE BLOOD COUNT 11.4 10^3/uL (4.0-10.5)
[2017-11-28 10:19] LABS: ALANINE AMINOTRANSFERASE 36 U/L (9-52); ALBUMIN 3.8 g/dL (3.5-5.0); ALKALINE PHOSPHATASE 72 U/L (38-126); ANION GAP 8 (5-19); ASPARTATE AMINO TRANSFERASE 37 U/L (14-36); BILIRUBIN,DIRECT 0.4 mg/dL (0.0-0.4); BILIRUBIN,TOTAL 0.8 mg/dL (0.2-1.3); BLOOD UREA NITROGEN 7 mg/dL (7-20); CARBON DIOXIDE 26 mmol/L (22-30); CHLORIDE 106 mmol/L (98-107); GLUCOSE 86 mg/dL (75-110); LIPASE 79.2 U/L (23-300); POTASSIUM 3.8 mmol/L (3.6-5.0); SODIUM 139.9 mmol/L (137-145); TOTAL PROTEIN 6.9 g/dL (6.3-8.2)
--- NOTE | 2017-11-28 10:28 | ER Document Report ---
ED General - General Chief Complaint: Dizziness Stated Complaint: DIZZY Time Seen by Provider: 11/28/17 09:24 Notes: 36-year-old female presents to the ER with dizziness and dehydration. Patient stated for the last 5 days she has been mildly nauseous but denies any abdominal pain. She started feeling dizzy especially upon standing sometimes the room will spin around her other times it will not. Patient denies chest pain or shortness of breath. States she is thrown up several times randomly over the last 5 days with nothing consistent. Denies diarrhea denies constipation. Comes in for further evaluation and treatment. TRAVEL OUTSIDE OF THE [place] IN LAST 30 DAYS: No - Related Data Allergies/Adverse Reactions: Sulfa (Sulfonamide Antibiotics) Allergy (Severe, Verified 11/28/17 09:02) ? sumatriptan [From Imitrex] Allergy (Intermediate, Verified 11/28/17 09:02) Hives citalopram hydrobromide [From Celexa] Allergy (Unknown, Verified 11/28/17 09:02) Hives pseudoephedrine HCl [From Sudafed] Allergy (Unknown, Verified 11/28/17 09:02) Hives adhesive tape Adverse Reaction (Unknown, Verified 11/28/17 09:02) Pruritis Past Medical History - Social History Smoking Status: Unknown if Ever Smoked Family History: Arthritis, DM, Hypertension, Malignancy, Other - asthma Patient has suicidal ideation: No Patient has homicidal ideation: No - Past Medical History Cardiac Medical History: Denies: Hx Coronary Artery Disease, Hx Heart Attack, Hx Hypertension Pulmonary Medical History: Reports: Hx Bronchitis - A CHILD, Hx Pneumonia - FEB 2016 Denies: Hx Asthma, Hx COPD Neurological Medical History: Reports: Hx Migraine. Denies: Hx Cerebrovascular Accident, Hx Seizures Endocrine Medical History: Denies: Hx Diabetes Mellitus Type 2 Renal/ Medical History: Reports: Hx Kidney Stones, Hx Ovarian Cysts - pcos. Denies: Hx Peritoneal Dialysis GI Medical History: Reports: Hx Gastroesophageal Reflux Disease Musculoskeletal Medical History: Denies Hx Arthritis Skin Medical History: Reports Hx Eczema Psychiatric Medical History: Reports: Hx Anxiety, Hx Bipolar Disorder, Hx Depression Traumatic Medical History: Reports: Hx Fractures - hand Past Surgical History: Reports: Hx Adenoidectomy, Hx Section, Hx Cholecystectomy, Hx Kidney (Renal Surgery) - stone removal, Hx Tonsillectomy. Denies: Hx Hysterectomy, Hx Pacemaker - Immunizations Immunizations up to date: Yes Hx Diphtheria, Pertussis, Tetanus Vaccination: Yes Hx Pneumococcal Vaccination: 03/26/00 Review of Systems - Review of Systems Cardiovascular: Chest pain, Dyspnea. denies: Orthopnea Respiratory: Cough. denies: Short of breath Musculoskeletal: Other - Muscle legs Skin: Rash Neurological/Psychological: denies: Headaches -: Yes All other systems reviewed and negative Physical Exam - Vital signs Vitals: Temp Pulse Resp BP Pulse Ox 98.2 F 108 H 18 142/88 H 97 11/28/17 09:09 11/28/17 09:09 11/28/17 09:09 11/28/17 09:09 11/28/17 09:09 - Notes Notes: GENERAL_APPEARANCE: well_nourished, alert, cooperative, no_acute_distress, no_ obvious_discomfort. VITALS: reviewed, see vital signs table. HEAD: no_swelling\tenderness on the head. EYES: PERRL, EOMI, conjunctiva_clear. NOSE: no_nasal_discharge. MOUTH: Mucous membranes THROAT: no_throat_inflammation, no_airway_obstruction. no_lymphadenopathy NECK: supple, no_neck_tenderness, (-)thyromegaly. BACK: no_back_tenderness. CHEST_WALL: no_chest_tenderness. LUNGS: no_wheezing, no_rales, no_rhonchi, (-)accessory muscle use, good air exchange bilateral. HEART: normal_rate, normal_rhythm, normal_S1, normal_S2, (-)S3, (-)S4, no_ murmur, no_rub. ABDOMEN: normal_BS, soft, no_abd_tenderness, (-)guarding, (-)rebound, no_ organomegaly, no_abd_masses. EXTREMITIES: good pulses in all_extremities, no_swelling\tenderness in the extremities, no_edema. SKIN: warm, dry, good_color, no_rash. MENTAL_STATUS: speech_clear, oriented_X_3, normal_affect, responds_ appropriately to questions. NEURO: Neg Motor or Sensory Deficits on exam, CN 2-12 intact, DTR 2+ symmetric x 4, No cerbellar signs Course - Re-evaluation Re-evalutation: 11/28/17 10:27 36-year-old female comes in complaining of some dizziness and feeling dehydrated her mouth is mildly dry will give her a liter of IV fluid check some generalized labs her dizziness is more orthostatic than vertiginous triage tried a dose of meclizine with her. He is completely neurologically intact my suspicion for any kind of stroke is low. Her abdomen is soft and supple on exam no focal tenderness is noted 11/28/17 12:21 This is feeling better after the IV fluids and meclizine. Patient does have a mild UTI we will treat that with Macrobid. Laboratory work is within acceptable limits. Patient is neurologically intact she did have a little migraine headache while she was here and was given a migraine cocktail and is felt much better. The patient and mother asking to go home they have an engagement to meet. I reevaluated the patient will discharge him at the request - Vital Signs Vital signs: Temp Pulse Resp BP Pulse Ox 98.2 F 108 H 18 142/88 H 97 11/28/17 09:09 11/28/17 09:09 11/28/17 09:09 11/28/17 09:09 11/28/17 09:09 - Laboratory Result Diagrams: 11/28/17 09:41 11/28/17 09:41 Laboratory results interpreted by me: 11/28/17 11/28/17 11/28/17 09:41 09:41 09:56 WBC 11.4 H RBC 5.34 H RDW 14.6 H AST 37 H Urine Protein 30 H Urine Blood SMALL H Urine Urobilinogen 4.0 H Ur Leukocyte Esterase MODERATE H Discharge - Discharge Clinical Impression: Vertigo, Dehydration UTI (urinary tract infection) Qualifiers: Urinary tract infection type: acute cystitis Hematuria presence: without hematuria Qualified Code(s): N30.00 - Acute cystitis without hematuria Condition: Good Disposition: HOME, SELF-CARE Instructions: Dizziness ([facility]), Urinary Tract Infection ([facility]) Prescriptions: Meclizine HCl [Antivert 25 mg Tablet] 25 mg PO QID PRN #20 tablet PRN Reason: dizziness Nitrofurantoin/Nitrofuran Mac [Macrobid 100 mg Capsule] 1 tab PO BID #20 capsule
[2017-11-28 11:01] LABS: APPEARANCE,URINE SLIGHTLY-CLOUDY; BILIRUBIN,URINE NEGATIVE (NEGATIVE); GLUCOSE, URINE NEGATIVE (NEGATIVE); KETONES,URINE NEGATIVE (NEGATIVE); LEUKOCYTE ESTERASE,URINE MODERATE (NEGATIVE); NITRITE,URINE NEGATIVE (NEGATIVE); PROTEIN,URINE 30 mg/dL (NEGATIVE); URINE SPECIFIC GRAVITY 1.027
[2017-11-28 11:02] LABS: COLOR,URINE DARK YELLOW
[2017-11-28] MEDS ORDERED: KETOROLAC TROMETHAMINE INJ/PF 30 MG/1 ML SDV IV ONE (11:19)
[2017-11-28] MEDS ORDERED: METOCLOPRAMIDE HCL INJ/PF 10 MG/2 ML SDV IV ONE (11:19)
[2017-11-28] MEDS ORDERED: DIPHENHYDRAMINE HCL 50 MG/ML VIAL IV ONE (11:19)
[2017-11-28] MEDS ORDERED: NITROFURANTOIN MONOHYD/M-CRYST 100 MG CAPSULE PO ONE (11:20)
[2017-11-28 12:37] VITALS: BP 151/77
== END 2017-11-28 12:37 | disposition home or self-care (01) ==
LOC: ER 09:01
DX: E86.0 Dehydration (principal); N30.00 Acute cystitis without hematuria; R42 Dizziness and giddiness; G43.909 Migraine, unspecified, not intractable, without status migrainosus; R11.2 Nausea with vomiting, unspecified; R07.9 Chest pain, unspecified; R05 Cough; R06.00 Dyspnea, unspecified; R21 Rash and other nonspecific skin eruption; Z88.2 Allergy status to sulfonamides; Z88.6 Allergy status to analgesic agent; Z88.8 Allergy status to other drugs, medicaments and biological substances
CPT/HCPCS: 99284; 96361; 96374; 96375; 36415; 83690; 84703; 85025; 80053; 81001; J1200; J1885; J2765; J7030; J8499

== ENCOUNTER 2019-01-07 09:24 | Emergency (ER) | payer MEDICAID ==
[2019-01-07] MEDS ORDERED: DIPHENHYDRAMINE HCL 50 MG/ML VIAL IV ONE (09:53)
[2019-01-07] MEDS ORDERED: METOCLOPRAMIDE HCL INJ/PF 10 MG/2 ML SDV IV ONE (09:53)
[2019-01-07] MEDS ORDERED: NORMAL SALINE 1000 ML 1,000 ML IV ONE (09:53)
--- NOTE | 2019-01-07 10:06 | ER Document Report ---
ED General - General Chief Complaint: Headache Stated Complaint: HEADACHE/NAUSEA Time Seen by Provider: 01/07/19 09:46 Primary Care Provider: [facility] [Provider Group] - Follow up as needed TRAVEL OUTSIDE OF THE [place] IN LAST 30 DAYS: No - HPI Notes: Patient is a 38-year-old that presents to the emergency department for chief complaint of migraine headache. Patient reports history of significant migraine headaches. She states usually come in clusters and occur few days in a row. She states this particular headache started yesterday evening. It was gradual in onset. She reports the headache is diffuse across her entire scalp and is a squeezing sensation. She reports she has an intermittent sharp pain that radiates behind her right eye to the back of her head that is more severe. She reports photophobia and phonophobia. She has taken her home migraine medications without improvement. Patient denies head injury, recent fevers, numbness, weakness or vomiting. She states this headache does feel consistent with her migraines in the past. Past Medical History: Migraine cephalgia Past Surgical History: Reviewed in chart Social History: Reviewed in chart Family History: Reviewed and noncontributory for presenting illness Allergies: Reviewed, see documented allergy list. REVIEW OF SYSTEMS: CONSTITUTIONAL : No fever No chills No diaphoresis No recent illness EENT: No vision changes No congestion No sore throat CARDIOVASCULAR: No chest pain No palpitations RESPIRATORY: No shortness of breath No cough No difficulty breathing GASTROINTESTINAL: No abdominal pain No nausea No vomiting No diarrhea GENITOURINARY: No dysuria No hematuria No difficulty urinating MUSCULOSKELETAL: No back pain No leg pain No arm pain SKIN: No rashes No lesions LYMPHATIC: No swollen, enlarged glands. NEUROLOGICAL: No lightheadedness headache No weakness No paresthesias PSYCHIATRIC: No anxiety No depression PHYSICAL EXAMINATION: Vital signs reviewed, nursing noted reviewed. GENERAL: Nontoxic, appears to be in pain, obese and in no acute distress. HEAD: Atraumatic, normocephalic. EYES: Eyes appear normal, extraocular movements intact, sclera anicteric, conjunctiva are normal. ENT: nares patent, oropharynx clear without exudates. Moist mucous membranes. NECK: Normal range of motion, supple without lymphadenopathy LUNGS: Breath sounds clear to auscultation bilaterally and equal. No wheezes rales or rhonchi. HEART: Regular rate and rhythm without murmurs ABDOMEN: Soft, nontender, normoactive bowel sounds. No rebound, guarding, or rigidity. No masses appreciated. EXTREMITIES: Nontender, good range of motion, no pitting or edema. NEUROLOGICAL: No focal neurological deficits. Moves all extremities spontaneously Motor and sensory grossly intact on exam. PSYCH: Normal mood, normal affect. SKIN: Warm, Dry, normal turgor, no rashes or lesions noted on exposed skin - Related Data Allergies/Adverse Reactions: Sulfa (Sulfonamide Antibiotics) Allergy (Severe, Verified 01/07/19 11:38) ? sumatriptan [From Imitrex] Allergy (Intermediate, Verified 01/07/19 11:38) Hives citalopram hydrobromide [From Celexa] Allergy (Unknown, Verified 01/07/19 11:38) Hives pseudoephedrine HCl [From Sudafed] Allergy (Unknown, Verified 01/07/19 11:38) Hives adhesive tape Adverse Reaction (Unknown, Verified 01/07/19 11:38) Pruritis Past Medical History - Social History Smoking Status: Never Smoker Frequency of alcohol use: None Drug Abuse: None Family History: Arthritis, DM, Hypertension, Malignancy, Other - asthma Patient has suicidal ideation: No Patient has homicidal ideation: No - Past Medical History Cardiac Medical History: Denies: Hx Coronary Artery Disease, Hx Heart Attack, Hx Hypertension Pulmonary Medical History: Reports: Hx Bronchitis - A CHILD, Hx Pneumonia - FEB 2016 Denies: Hx Asthma, Hx COPD Neurological Medical History: Reports: Hx Migraine. Denies: Hx Cerebrovascular Accident, Hx Seizures Endocrine Medical History: Denies: Hx Diabetes Mellitus Type 2 Renal/ Medical History: Reports: Hx Kidney Stones, Hx Ovarian Cysts - pcos. Denies: Hx Peritoneal Dialysis GI Medical History: Reports: Hx Gastroesophageal Reflux Disease Musculoskeletal Medical History: Denies Hx Arthritis Skin Medical History: Reports Hx Eczema Psychiatric Medical History: Reports: Hx Anxiety, Hx Bipolar Disorder, Hx Depression Traumatic Medical History: Reports: Hx Fractures - hand Past Surgical History: Reports: Hx Adenoidectomy, Hx Section, Hx Cholecystectomy, Hx Kidney (Renal Surgery) - stone removal, Hx Tonsillectomy. Denies: Hx Hysterectomy, Hx Pacemaker - Immunizations Immunizations up to date: Yes Hx Diphtheria, Pertussis, Tetanus Vaccination: Yes Hx Pneumococcal Vaccination: 03/26/00 Physical Exam - Vital signs Vitals: Temp Pulse Resp BP Pulse Ox 97.7 F 119 H 22 H 146/83 H 96 01/07/19 09:29 01/07/19 09:29 01/07/19 09:29 01/07/19 09:29 01/07/19 09:29 Course - Re-evaluation Re-evalutation: 01/07/19 10:07 Vitals reviewed. Nursing notes reviewed. Patient cephalgia is consistent with her migraine headaches in the past. She states no new symptoms today to suggest intracranial hemorrhage, meningitis, or mass lesion. No further work-up indicated at this time. Patient will be treated with IV fluids, Reglan and Benadryl for migraine management. 01/07/19 10:54 Patient reevaluated and states she is feeling improvement but the headache is still a 6/10. Patient will be ordered Decadron and Toradol for further pain management. She still has no focal neurologic deficits and is well-appearing 01/07/19 11:41 Patient reevaluated and states she is feeling much better. Her headache is now almost completely resolved. She feels comfortable with discharge and further management with home medications. She will follow with her primary care doctor for reevaluation in the next few days. She will return for new or worsening symptoms. Patient stable at discharge - Vital Signs Vital signs: Temp Pulse Resp BP Pulse Ox 97.7 F 119 H 22 H 146/83 H 96 01/07/19 09:29 01/07/19 09:29 01/07/19 09:29 01/07/19 09:29 01/07/19 09:29 Discharge - Discharge Clinical Impression: Migraine headache Qualifiers: Migraine type: chronic without aura Status migrainosus presence: without status migrainosus Intractability: not intractable Qualified Code(s): G43.709 - Chronic migraine without aura, not intractable, without status migrainosus Condition: Stable Disposition: HOME, SELF-CARE Instructions: Headache ([facility]) Additional Instructions: Please return to the emergency department if you have any worsening, or concern of your symptoms. Please return to the emergency department if you develop persistent headache, difficulty breathing, severe abdominal pain, or ongoing vomiting. Please follow-up with your primary care physician in 2-3 days or the one provided. If prescribed, take all medications as directed. If you have any questions or concerns do not hesitate to return the emergency department for evaluation. Continue taking her migraine medications as prescribed at home. Referrals: [facility] [Provider Group] - Follow up as needed
[2019-01-07] MEDS ORDERED: DEXAMETHASONE SOD PHOS INJ 10 MG/1 ML VIAL IV ONE (10:54)
[2019-01-07] MEDS ORDERED: KETOROLAC TROMETHAMINE INJ/PF 30 MG/1 ML SDV IV ONE (10:54)
[2019-01-07 11:53] VITALS: BP 125/87
== END 2019-01-07 11:54 | disposition home or self-care (01) ==
LOC: ER 09:24
DX: G43.709 Chronic migraine without aura, not intractable, without status migrainosus (principal); R11.0 Nausea; H57.11 Ocular pain, right eye; H53.149 Visual discomfort, unspecified
CPT/HCPCS: J1200; J1885; J2765; J7030; J1100; 96361; 96374; 96375; 99283

== ENCOUNTER 2019-01-28 05:55 | Emergency (ER) | payer MEDICAID ==
[2019-01-28] MEDS ORDERED: NORMAL SALINE 1000 ML 1,000 ML IV ONE (07:18)
[2019-01-28] MEDS ORDERED: PHENAZOPYRIDINE HCL 200 MG TABLET PO ONE ×2 (07:21→09:00)
[2019-01-28] MEDS ORDERED: KETOROLAC TROMETHAMINE INJ/PF 30 MG/1 ML SDV IV ONE (07:21)
--- NOTE | 2019-01-28 07:28 | ER Document Report ---
ED General - General Chief Complaint: Pain With Urination Stated Complaint: PAIN URINATING Time Seen by Provider: 01/28/19 07:03 Mode of Arrival: Ambulatory Information source: Patient TRAVEL OUTSIDE OF THE [place] IN LAST 30 DAYS: No - HPI Notes: Patient presents with left flank pain and pain with urination. She states that this is been going on for several days. She states she recently went to [facility] approximately 2 days ago. At that time she was diagnosed with a urinary tract infection and placed on antibiotic. She states she takes an tibiotic twice a day was not know the name of it. She states that she feels she is getting worse despite taking this antibiotic. She states she now has frequency and urgency. She also has pain in the left flank that is new. This pain in the left flank is moderate to severe. It is constant. It is worse with movement and better with rest. It does radiate down into her left lower abdomen. She denies any vaginal discharge or bleeding. She is not appreciated any blood in her urine but she does have a history of kidney stones. - Related Data Allergies/Adverse Reactions: Sulfa (Sulfonamide Antibiotics) Allergy (Severe, Verified 01/07/19 11:38) ? sumatriptan [From Imitrex] Allergy (Intermediate, Verified 01/07/19 11:38) Hives citalopram hydrobromide [From Celexa] Allergy (Unknown, Verified 01/07/19 11:38) Hives pseudoephedrine HCl [From Sudafed] Allergy (Unknown, Verified 01/07/19 11:38) Hives adhesive tape Adverse Reaction (Unknown, Verified 01/07/19 11:38) Pruritis Past Medical History - General Information source: Patient - Social History Smoking Status: Never Smoker Frequency of alcohol use: None Drug Abuse: None Family History: Arthritis, DM, Hypertension, Malignancy, Other - asthma Patient has suicidal ideation: No Patient has homicidal ideation: No - Past Medical History Cardiac Medical History: Denies: Hx Coronary Artery Disease, Hx Heart Attack, Hx Hypertension Pulmonary Medical History: Reports: Hx Bronchitis - A CHILD, Hx Pneumonia - FEB 2016 Denies: Hx Asthma, Hx COPD Neurological Medical History: Reports: Hx Migraine. Denies: Hx Cerebrovascular Accident, Hx Seizures Endocrine Medical History: Denies: Hx Diabetes Mellitus Type 2 Renal/ Medical History: Reports: Hx Kidney Stones, Hx Ovarian Cysts - pcos. Denies: Hx Peritoneal Dialysis GI Medical History: Reports: Hx Gastroesophageal Reflux Disease Musculoskeletal Medical History: Denies Hx Arthritis Skin Medical History: Reports Hx Eczema Psychiatric Medical History: Reports: Hx Anxiety, Hx Bipolar Disorder, Hx Depression Traumatic Medical History: Reports: Hx Fractures - hand Past Surgical History: Reports: Hx Adenoidectomy, Hx Section, Hx Cholecystectomy, Hx Kidney (Renal Surgery) - stone removal, Hx Tonsillectomy. Denies: Hx Hysterectomy, Hx Pacemaker - Immunizations Immunizations up to date: Yes Hx Diphtheria, Pertussis, Tetanus Vaccination: Yes Hx Pneumococcal Vaccination: 03/26/00 Review of Systems - Review of Systems Constitutional: Malaise, Weakness. denies: Chills, Fever Cardiovascular: denies: Chest pain, Palpitations Respiratory: denies: Cough, Short of breath -: Yes All other systems reviewed and negative Physical Exam - Vital signs Interpretation: Normal - General General appearance: Appears well, Alert - HEENT Head: Normocephalic, Atraumatic Eyes: Normal Pupils: PERRL - Respiratory Respiratory status: No respiratory distress Chest status: Nontender Breath sounds: Normal Chest palpation: Normal - Cardiovascular Rhythm: Regular Heart sounds: Normal auscultation Murmur: No - Abdominal Inspection: Normal Distension: No distension Bowel sounds: Normal Tenderness: Tender - Mild diffuse lower quadrant tenderness to palpation. No rebound or guarding. Organomegaly: No organomegaly - Back Back: Normal, Tender, CVA tenderness - Left - Extremities General upper extremity: Normal inspection, Nontender, Normal color, Normal ROM, Normal temperature General lower extremity: Normal inspection, Nontender, Normal color, Normal ROM, Normal temperature, Normal weight bearing. No: Xochilt's sign - Neurological Neuro grossly intact: Yes Cognition: Normal Orientation: AAOx4 Switchback Coma Scale Eye Opening: Spontaneous Sai Coma Scale Verbal: Oriented Sai Coma Scale Motor: Obeys Commands Switchback Coma Scale Total: 15 Speech: Normal Motor strength normal: LUE, RUE, LLE, RLE Sensory: Normal - Psychological Associated symptoms: Normal affect, Normal mood - Skin Skin Temperature: Warm Skin Moisture: Dry Skin Color: Normal Course - Re-evaluation Re-evalutation: 01/28/19 10:42 Patient presents with flank pain and lower abdominal pain. She has an equivocal urine with a 3 mm stone on the left. She has a mildly elevated white blood cell count. She has no comorbidities. She is not toxic appearing. Her vital signs are stable. She states she feels better. I have called urology at [facility] as well as [facility]. Both state they will see the patient tomorrow. She is asked for both numbers and says she will talk with her family and figure out where she can get a ride tomorrow. She has been told to follow-up with the emergency department if she is unable to go to either facility. - Laboratory Result Diagrams: 01/28/19 08:30 01/28/19 08:30 Laboratory results interpreted by me: 01/28/19 01/28/19 01/28/19 07:45 08:30 08:30 WBC 12.4 H RDW 14.4 H Absolute Neuts (auto) 9.5 H Chloride 108 H Glucose 113 H Urine Protein 30 H Urine Blood LARGE H Urine Nitrite POSITIVE H Urine Urobilinogen 4.0 H - Diagnostic Test Radiology reviewed: Image reviewed, Reports reviewed Discharge - Discharge Clinical Impression: Ureteral stone with hydronephrosis UTI (urinary tract infection) Qualifiers: Urinary tract infection type: acute cystitis Hematuria presence: with hematuria Qualified Code(s): N30.01 - Acute cystitis with hematuria Condition: Stable Disposition: HOME, SELF-CARE Instructions: Urinary Tract Infection ([facility]), Kidney Stone ([facility]) Additional Instructions: Please follow up with [facility] tomorrow at or At [facility] at . Prescriptions: Hydrocodone/Acetaminophen [[place] 5-325 mg Tablet] 1 tab PO Q6 PRN 3 Days #12 tablet PRN Reason: Cefdinir [Omnicef 300 mg Capsule] 1 cap PO BID 10 Days #30 capsule
[2019-01-28 08:05] LABS: APPEARANCE,URINE CLEAR; BILIRUBIN,URINE NEGATIVE (NEGATIVE); GLUCOSE, URINE NEGATIVE (NEGATIVE); KETONES,URINE NEGATIVE (NEGATIVE); LEUKOCYTE ESTERASE,URINE NEGATIVE (NEGATIVE); NITRITE,URINE POSITIVE (NEGATIVE); PROTEIN,URINE 30 mg/dL (NEGATIVE); URINE SPECIFIC GRAVITY 1.026
[2019-01-28 08:18] LABS: COLOR,URINE ORANGE
--- NOTE | 2019-01-28 08:26 | RADIOLOGY REPORT (SQ) ---
EXAM DESCRIPTION: CT ABD/PELVIS NO ORAL OR IV COMPLETED DATE/TIME: 01/28/2019 8:07 am REASON FOR STUDY: left flank pain COMPARISON: 11/07/2016 TECHNIQUE: CT scan of the abdomen and pelvis performed without intravenous or oral contrast. Images reviewed with lung, soft tissue, and bone windows. Reconstructed coronal and sagittal MPR images revi ewed. All images stored on PACS. All CT scanners at this facility use dose modulation, iterative reconstruction, and/or weight based d osing when appropriate to reduce radiation dose to as low as reasonably achievable (ALARA). [facility]: Dose Right [facility]: CareDose [facility]: Dose Right [facility]: Teradose 4D [facility]: Zmanda RADIATION DOSE: CT Rad equipment meets quality standard of care and radiation dose reduction techniq ues were employed. CTDIvol: 19.2 mGy. DLP: 1130 mGy-cm.mGy. LIMITATIONS: Body habitus FINDINGS: LOWER CHEST: No significant findings. No nodules or infiltrates. NON-CONTRASTED LIVER, SPLEEN, ADRENALS: Evaluation limited by lack of IV contrast. No identified sign ificant masses. PANCREAS: No masses. No peripancreatic inflammatory changes. GALLBLADDER: Surgically absent. RIGHT KIDNEY AND URETER: No suspicious masses. Assessment limited by lack of IV contrast. No signif icant calcifications. No hydronephrosis or hydroureter. LEFT KIDNEY AND URETER: No suspicious masses. Assessment limited by lack of IV contrast. There is a 3 mm calculus at the left ureterovesicular junction with mild associated left hydronephrosis and hydr oureter (series 3, image 86). Evaluation is limited by CT noise due to body habitus. AORTA AND RETROPERITONEUM: No aneurysm. No retroperitoneal masses or adenopathy. BOWEL AND PERITONEAL CAVITY: No obvious masses or inflammatory changes. No free fluid. APPENDIX: Normal. PELVIS, BLADDER, AND ABDOMINAL WALL:No abnormal masses. IUD present in the endometrial cavity. No f ree fluid. Bladder normal. BONES: No significant findings. OTHER: No other significant finding. IMPRESSION: There is a 3 mm calculus at the left ureterovesicular junction with mild associated left hydronephrosis and hydroureter (series 3, image 86). Evaluation is limited by CT noise due to body habitus. COMMENT: Quality ID # [id number]: Final reports with documentation of one or more dose reduction techniques (e.g., Automated exposure control, adjustment of the mA and/or kV according to patient size, use of iterative reconstruction technique) TECHNICAL DOCUMENTATION: JOB ID: [id number] [employer]- All Rights Reserved Reading location - IP/workstation name: [email or web address]
[2019-01-28 08:51] LABS: ABSOLUTE BASOPHILS # (AUTO) 0.1 10^3/uL (0.0-0.2); ABSOLUTE EOSINOPHILS # (AUTO) 0.2 10^3/uL (0.0-0.6); ABSOLUTE LYMPHOCYTES (AUTO) 1.9 10^3/uL (0.5-4.7); ABSOLUTE MONOCYTES (AUTO) 0.8 10^3/uL (0.1-1.4); ABSOLUTE NEUT (AUTO) 9.5 10^3/uL (1.7-8.2); BASOPHILS % (AUTO) 0.5 % (0-2); EOSINOPHILS % (AUTO) 1.9 % (0-6); HEMATOCRIT 40.8 % (36.0-47.0); HEMOGLOBIN 13.7 g/dL (12.0-15.5); MEAN CORPUSCULAR HEMOGLOBIN 27.9 pg (27.0-33.4); MEAN CORPUSCULAR HGB CONC 33.7 g/dL (32.0-36.0); MEAN CORPUSCULAR VOLUME 83 fl (80-97); MONOCYTES % (AUTO) 6.2 % (3-13); PLATELET COUNT 242 10^3/uL (150-450); RED BLOOD COUNT 4.92 10^6/uL (3.72-5.28); RED CELL DISTRIBUTION WIDTH 14.4 % (11.5-14.0); SEGMENTED NEUTROPHILS % (AUTO) 76.4 % (42-78); TOTAL CELLS COUNTED % (AUTO) 100 %; WHITE BLOOD COUNT 12.4 10^3/uL (4.0-10.5)
[2019-01-28 09:10] LABS: ALBUMIN 3.7 g/dL (3.5-5.0); ALKALINE PHOSPHATASE 60 U/L (38-126); ANION GAP 10 (5-19); ASPARTATE AMINO TRANSFERASE 31 U/L (14-36); BILIRUBIN,DIRECT 0.1 mg/dL (0.0-0.4); BILIRUBIN,TOTAL 0.5 mg/dL (0.2-1.3); BLOOD UREA NITROGEN 9 mg/dL (7-20); CALCIUM 9.4 mg/dL (8.4-10.2); CARBON DIOXIDE 23 mmol/L (22-30); CHLORIDE 108 mmol/L (98-107); GLUCOSE 113 mg/dL (75-110); POTASSIUM 3.9 mmol/L (3.6-5.0); TOTAL PROTEIN 6.6 g/dL (6.3-8.2)
[2019-01-28] MEDS ORDERED: CEFTRIAXONE 1 GM/D5W RTU 1 GM/50 ML RTUPB IV ONE (09:12)
[2019-01-28 11:24] VITALS: BP 120/79
== END 2019-01-28 11:30 | disposition home or self-care (01) ==
LOC: ER 05:55
DX: N13.2 Hydronephrosis with renal and ureteral calculous obstruction (principal); N30.01 Acute cystitis with hematuria; R30.0 Dysuria; R10.9 Unspecified abdominal pain; R35.0 Frequency of micturition; R39.15 Urgency of urination; R10.32 Left lower quadrant pain; R53.81 Other malaise; R53.1 Weakness
CPT/HCPCS: 36415; 85025; 80053; 81001; 74176; J1885; J7030; J0696; 96361; 96365; 96375; 99284; J3490